=== PATIENT | female | born 1960 | race Caucasian/White ===

== ENCOUNTER 2018-07-26 12:09 | Inpatient (IN) ==
[2018-07-26] MEDS ORDERED: Clindamycin 900 MG/50 ML 900 MG/50 ML IV.SOLN IVPB ONE ×2 (12:27→14:00)
[2018-07-26 13:12] LABS: Basophils # 0.1 K/mcL (0.0-0.2); Eosinophils # 0.4 K/mcL (0.0-0.6); Eosinophils % 3.2 %; Hematocrit 36.9 % (35.3-44.9); Hemoglobin 11.3 g/dL (11.5-15.4); Immature Granulocytes % 1.5 % (0-4); Lymphocytes # 1.8 K/mcL (0.6-4.6); Lymphocytes % 14.1 %; Mean Corpuscular HGB Conc 30.6 g/dL (31.6-35.5); Mean Corpuscular Hemoglobin 25.6 pg (28.0-33.3); Mean Corpuscular Volume 83.7 fL (83.0-100.0); Mean Platelet Volume 8.6 fL (9.4-12.4); Monocytes # 0.7 K/mcL (0.0-1.3); Monocytes % 5.3 %; Neutrophils # 9.3 K/mcL (1.6-8.9); Platelet Count 521 K/mcL (140-400); Red Blood Count 4.41 M/mcL (3.82-4.97); Red Cell Distribution Width 14.8 % (11.5-14.5); Segmented Neutrophils % 74.9 %
[2018-07-26] MEDS: 0.9 % Sodium Chloride 1,000 ML IVC SCH (14:25)
[2018-07-26] MEDS: Sulfamethoxazole/Trimeth 10 ML in D5% in Water 500 ML IVPB SCH (18:14)
--- NOTE | 2018-07-26 19:02 | Anesthesia Evaluation PreOp ---
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 Of cervical cancer) Anesthesia History: No Prior Anesthetic Complications, Past Anesthesia (Exp. Lap., Kidney repair,) : No Alcohol Use: none Drug use: none Medications and Allergies Ascorbic Acid/Vitamin E/Biotin [Hair Skin Nails-Biotin Gummies] 1 tab PO DAILY 07/15/18 [History] Cyanocobalamin (Vitamin B-12) [Vitamin B-12] 1,000 mcg PO DAILY 07/15/18 [ History] Lactobacillus Combination No.8 [Adult Probiotic] 1 cap PO DAILY 07/15/18 [ History] Lisinopril 2.5 mg PO DAILY 07/15/18 [History] Metformin HCl [Glucophage] 500 mg PO BID 07/15/18 [History] Mv,Ca,Min/Iron/FA/Guarana/Caff [One-A-Day Women's Tablet] 1 tab PO DAILY [History] [employer]-3/Dha/Epa/Fish Oil [Fish Oil 1,000 mg Softgel] 1 cap PO DAILY 07/15/18 [ History] Potassium Chloride [K-Tab ER] 10 meq PO DAILY 07/15/18 [History] Pravastatin Sodium [Pravachol] 20 mg PO HS 07/15/18 [History] rOPINIRole [Requip] 0.5 mg PO HS 07/15/18 [History] Docusate [Colace] 100 mg PO BID #30 capsule 07/16/18 [Rx] HYDROcodone/Acet 5/325 mg [[place] 5-325 mg] 1 tab PO Q6H PRN 7 Days #28 tablet [Rx] Ibuprofen 800 mg PO Q8H #42 tablet 07/16/18 [Rx] Ondansetron HCl [Zofran] 4 mg PO Q6HR PRN #15 tab 07/16/18 [Rx] 3 Allergy/AdvReac Type Severity Reaction Status Date / Time simvastatin AdvReac Muscle Pain Verified 07/15/18 08:02 vancomycin AdvReac Red Man Verified 07/26/18 18:12 Syndrome - Meds/Allergy Pre-op Review Medications Reviewed: Yes Allergies Reviewed: Yes Beta Blockers on Current Med List: No Anesthesia Results - Labs 07/26/18 12:54 - Imaging EKG: report reviewed Anesthesia Exam O2 Sat Height 1.55 m Weight 110.223 kg O2 Sat by Pulse Oximetry 96 O2 Sat by Pulse Oximetry 96 O2 Sat by Pulse Oximetry 97 Vital Signs Temp Pulse Resp BP Pulse Ox 97.3 F L 90 18 103/67 97 07/26/18 12:58 07/26/18 12:58 07/26/18 12:58 07/26/18 12:58 07/26/18 12:58 NPO (# of Hours): > 8 hrs Pain Scale: 2 Pain Scale Used: Numeric (1 - 10) - HEENT Pupil (Motor): Pupils equal, EOMI Mallampati: III Teeth: Missing Denture Type: Upper: Complete Oral Opening: Greater than 3 - STRATEGIC PARTNER DEVELOPMENT MANAGER LOC: Oriented STRATEGIC PARTNER DEVELOPMENT MANAGER Motor: Normal RUE, Normal LUE, Normal RLE, Normal LLE, Normal Face STRATEGIC PARTNER DEVELOPMENT MANAGER Sensory: Normal: RUE, LUE, RLE, LLE, Face - Cardiac Rhythm: Regular Murmur: None JVD: No Carotid Bruit: No - Pulmonary Breath Sounds: bilateral Clear Respiratory Effort: Symmetrical Anesthesia Assess/Plan ASA Score: 3 Modified Rebecca Scale for Level of Consciousness: Cooperative, oriented, and tranquil Anesthetic Plan: General, Regional Autologous Blood: Yes Monitoring Plan: Standard Monitors Recovery Plan: PACU
[2018-07-26] MEDS: *HR* HYDROcodone/Acet 5/325 mg TABLET PO PRN (20:10)
[2018-07-27] MEDS: Sulfamethoxazole/Trimeth 10 ML in D5% in Water 500 ML IVPB SCH (06:01)
[2018-07-27] MEDS: *HR* HYDROcodone/Acet 5/325 mg TABLET PO PRN (09:02)
[2018-07-27] MEDS: 0.9 % Sodium Chloride 1,000 ML IVC SCH ×2 (11:33→20:00)
[2018-07-27] MEDS ORDERED: Sulfamethoxazole/Trimeth 34 ML in D5% in Water 500 ML IVPB SCH (14:00)
--- NOTE | 2018-07-27 17:06 | History & Physical Report ---
Date of Encounter: 07/27/18 Time of Encounter: 17:05 24 Hour HP Update - Instructions Instructions: If the History and Physical is less than 30 days old and was completed prior to A.M. admission and or procedure and has NOT been updated on calendar day of procedure please complete this update prior to performing procedure. - Update Patient reports changes in Medical Condition: No Changes in examination, assessment, or condition: No Changes in Medication: No Preop tests/diagnostics Reviewed: Yes Surgery Remains Indicated: Yes Consent for Planned Operative Procedure(s) Verified: Yes - Pre-Operative Checklist Preoperative Checklist Indicated: Yes Prophylactic Antibiotic Ordered: Yes Home Medications Include Beta Tevin: No
--- NOTE | 2018-07-27 17:10 | Event Note ---
Date of Encounter: 07/27/18 MAR Administrations Hydrocodone Bitart/Acetaminophen ([place] 5-325 Mg) 1 tab PO Q8HR PRN PRN Reason: Pain Stop: 01/25/19 13:58 Last Admin: 07/27/18 09:02 Dose: 1 tab Admin: 07/26/18 20:10 Dose: 1 tab Sodium Chloride (0.9 % Sodium Chloride) 1,000 mls @ 80 mls/hr IVC .[id number] [facility] Stop: 01/25/19 12:31 Last Admin: 07/27/18 11:33 Dose: 80 mls/hr Infusion: 07/27/18 02:55 Dose: 80 mls/hr Admin: 07/26/18 14:25 Dose: 80 mls/hr Trimethoprim/Sulfamethoxazole (34 ml/ Dextrose) 534 mls @ 249.76 mls/hr IVPB Q8H [facility] Stop: 01/26/19 14:01 Last Admin: 07/27/18 14:56 Dose: 249.76 mls/hr Clindamycin Phosphate/Dextrose (Cleocin Premix 900 Mg/50 Ml) 900 mg in 50 mls @ 100 mls/hr IVPB PREOP ONE Stop: 07/26/18 12:56 Last Admin: 07/26/18 13:59 Dose:
[2018-07-27] MEDS ORDERED: Ondansetron 4 MG/2 ML VIAL IVP ONE ×2 (17:14→19:48)
[2018-07-27] MEDS ORDERED: *HR* OxyCODONE Immed Rel 5 MG TABLET PO PRN ×2 (17:14→19:48)
[2018-07-27] MEDS ORDERED: *HR* Promethazine 25 MG/ML VIAL IVP PRN ×2 (17:14→19:48)
[2018-07-27] MEDS ORDERED: *HR* HYDROmorphone (PF) 1 MG/ML SYRINGE IVP PRN ×2 (17:14→19:48)
--- NOTE | 2018-07-27 17:29 | Anesthesia Progress Note ---
Date of Encounter: 07/27/18 Time of Encounter: 17:11 Anesthesia Note - Note Note: SURGICAL PROCEDURE WAS CHANGED TO EXPLORATORY LAPAROTOMY MAR Administrations Hydrocodone Bitart/Acetaminophen ([place] 5-325 Mg) 1 tab PO Q8HR PRN PRN Reason: Pain Stop: 01/25/19 13:58 Last Admin: 07/27/18 09:02 Dose: 1 tab Trimethoprim/Sulfamethoxazole (34 ml/ Dextrose) 534 mls @ 249.76 mls/hr IVPB Q8H [facility] Stop: 01/26/19 14:01 Last Admin: 07/27/18 14:56 Dose: 249.76 mls/hr Vancomycin HCl 1,500 mg/ (Sodium Chloride) 250 mls @ 167 mls/hr IVPB ONCE ONE PRN Reason: Protocol Stop: 07/26/18 15:29 Last Admin: 07/26/18 15:39 Dose: 167 mls/hr Clindamycin Phosphate/Dextrose (Cleocin Premix 900 Mg/50 Ml) 900 mg in 50 mls @ 100 mls/hr IVPB PREOP ONE Stop: 07/26/18 14:29 Last Infusion: 07/26/18 15:00 Dose: 0 mls/hr Admin: 07/26/18 14:25 Dose: 100 mls/hr NPO: >8 HRS Laboratory Last Values 3 WBC 12.4 K/mcL (4.3-11.1) H 07/26/18 12:54 RBC 4.41 M/mcL (3.82-4.97) 07/26/18 12:54 Hgb 11.3 g/dL (11.5-15.4) L 07/26/18 12:54 Hct 36.9 % (35.3-44.9) 07/26/18 12:54 MCV 83.7 fL (83.0-100.0) 07/26/18 12:54 MCH 25.6 pg (28.0-33.3) L 07/26/18 12:54 MCHC 30.6 g/dL (31.6-35.5) L 07/26/18 12:54 RDW 14.8 % (11.5-14.5) H 07/26/18 12:54 Plt Count 521 K/mcL (140-400) H 07/26/18 12:54 MPV 8.6 fL (9.4-12.4) L 07/26/18 12:54 Immature Gran % 1.5 % (0-4) 07/26/18 12:54 Seg Neutrophils % 74.9 % 07/26/18 12:54 Lymphocytes % 14.1 % 07/26/18 12:54 Monocytes % 5.3 % 07/26/18 12:54 Eosinophils % 3.2 % 07/26/18 12:54 Basophils % 1.0 % 07/26/18 12:54 Neutrophils # 9.3 K/mcL (1.6-8.9) H 07/26/18 12:54 Lymphocytes # 1.8 K/mcL (0.6-4.6) 07/26/18 12:54 Monocytes # 0.7 K/mcL (0.0-1.3) 07/26/18 12:54 Eosinophils # 0.4 K/mcL (0.0-0.6) 07/26/18 12:54 Basophils # 0.1 K/mcL (0.0-0.2) 07/26/18 12:54 POC Glucose 85 mg/dL (70-99) 07/27/18 13:15 Laboratory Tests 3 06/07/18 07/02/18 07/16/18 08:07 10:22 03:48 Sodium 139 Potassium 4.3 BUN 12 Creatinine 0.71 POC Creatinine 0.80 Est GFR (Non-Af Amer) > 60 Hemoglobin A1c 5.8 H Calcium 8.6
[2018-07-27] MEDS ORDERED: *HR* HYDROmorphone (PF) 1 MG/ML SYRINGE ONE (17:31)
[2018-07-27] MEDS ORDERED: Acetaminophen IV 1,000 MG/100 ML INFUS..BTL ONE (17:31)
[2018-07-27] MEDS ORDERED: *HR* Vasopressin 20 UNIT/ML VIAL ONE (18:06)
[2018-07-27] MEDS ORDERED: *HR* Succinylcholine 200 MG/10 ML VIAL IVP ONE (18:08)
[2018-07-27] MEDS ORDERED: Ondansetron 4 MG/2 ML VIAL ONE (18:08)
[2018-07-27] MEDS ORDERED: Lidocaine -MPF 2% 2 ML VIAL ONE (18:08)
[2018-07-27] MEDS ORDERED: Dexamethasone 4 MG/ML VIAL ONE (18:08)
[2018-07-27] MEDS ORDERED: *HR* PHENYLEPHRINE 1,000 MCG/10 ML SYRINGE IVP ONE (18:08)
[2018-07-27] MEDS ORDERED: *HR* Propofol 200 MG/20 ML VIAL IVP ONE (18:08)
[2018-07-27] MEDS ORDERED: *HR* Rocuronium Bromide 50 MG/5 ML VIAL ONE (18:08)
[2018-07-27] MEDS ORDERED: *HR* FentaNYL (PF) 100 MCG/2 ML VIAL ONE (18:08)
[2018-07-27] MEDS ORDERED: Albumin Human 5% 25.0 GM/500 ML VIAL ONE (18:28)
[2018-07-27] MEDS ORDERED: Neostigmine Methylsulfate 3 MG/3 ML SYRINGE ONE (18:42)
[2018-07-27] MEDS ORDERED: Ketorolac 30 MG/ML VIAL ONE (18:42)
[2018-07-27] MEDS ORDERED: ROPIVACAINE HCL/PF 0.5% 30 ML VIAL ONE (18:50)
[2018-07-27] MEDS ORDERED: *HR* HYDROmorphone 20 MG/20 ML PCA IVC PRN ×2 (19:05→20:28)
--- NOTE | 2018-07-27 19:15 | Anesthesia Procedures ---
Date of Encounter: 07/27/18 Time of Encounter: 19:14 Procedures: Anesthesia - Nerve Block Procedure Date: 07/27/18 Time: 19:20 Pre-op Diagnosis: POST OPERATIVE PAIN Checklist: Correct Patient Identifier, Correct procedure Blood Thinner: No Indication: Post Op Analgesia Block Type: Other (BILATERAL TAP BLOCK) Sterile Technique: Yes Ultrasound used: Yes Anatomy identified: Yes Visual spread of Local: Yes Neuro Stimulation: No Blood on Needle Aspiration: No Prep: Chlorhexadine Needle: 21 x 100 mm Stimuplex Local: Ropivacaine (0.25%) Volume (cc): 60 ML Number of Attempts: 1 Complications: None/effective block
--- NOTE | 2018-07-27 19:43 | Anesthesia Evaluation Post Op ---
Date of Encounter: 07/27/18 Time of Encounter: 19:42 - Discharge PostOp Status: Transfer Patient to floor (Patient's vital signs have been reviewed. Patient is stable postoperatively and has adequately recovered from anesthesia. Patient is determined to have stable airway patency and respiratory function including respiratory rate and oxygen saturation. Patient has a stable heart rate, blood pressure and adequate hydration. Patients mental status is acceptable. Patients temperature is appropriate. Pain and nausea are adequately controlled.)
[2018-07-27] MEDS ORDERED: *HR* HYDROcodone/Acet 5/325 mg TABLET PO PRN (19:48)
[2018-07-27] MEDS ORDERED: 0.9 % Sodium Chloride 1,000 ML ONE (21:06)
[2018-07-28] MEDS: Sulfamethoxazole/Trimeth 34 ML in D5% in Water 500 ML IVPB SCH ×4 (00:03→22:17)
[2018-07-28] MEDS: 0.9 % Sodium Chloride 1,000 ML IVC SCH ×2 (08:32→22:18)
[2018-07-28] MEDS ORDERED: Dextrose Gel 15 GM/37.5 ML TUBE PO PRN ×2 (08:35)
[2018-07-28] MEDS ORDERED: *HR* Dextrose 50 % in Water (Syg) 50 ML SYRINGE IVP PRN (08:35)
[2018-07-28] MEDS ORDERED: D5% in Water 1,000 ML IVC PRN (08:35)
--- NOTE | 2018-07-28 08:47 | General Surgery Progress Note ---
Date of Encounter: 07/28/18 Time of Encounter: 08:00 - Assessment and Plan (1) Non-healing surgical wound Current Visit: No Status: Acute POD #1 (07/27/2018) exploratory laparotomy with lysis of adhesions, removal of mesh, and wound VAC placement by Dr. Sutton. Her abdominal exam is as expected. Her vital signs are stable, she is afebrile , discomfort is moderately controlled. There is no evidence for concern of active bleeding. Wound VAC and abdominal binder are in place. Plan: continue supportive care and discomfort management add scheduled Ofirmev and Toradol the GERIATRIC NURSE PRACTITIONER as tolerated; transition to PO pain medication as tolerated continue G.I. and DVT prophylaxis incentive spirometry 10 times every 1 hour while awake consult PT/OT for mobilization and discharge planning abdomen precautions include do not raise out of bed but roll to the side and push up with her arms to get out of bed. Abdominal binder to remain in place at all times except when showering; patient should remain seated on a shower chair. NPO except ice chips and popsicle repeat a.m. 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 Goal blood pressure less than 130/90. Will hold lisinopril today and reevaluate in the a.m. Qualifiers: Hypertension type: essential hypertension Qualified Code(s): I10 - Essential (primary) hypertension (4) DVT prophylaxis Current Visit: Yes Status: Acute Heparin 5000 units sub Q BID EP CDs ambulate as tolerated Subjective Patient reports: still having pain, voiding w/o difficulty, no flatus, no bowel movement, afebrile Narrative: Yaneli states her abdomen is sore, but controlled. She denies n/v, flatus, or BM. She denies feelings of weakness. She has not attempted to get OOB and has been voiding per bedpan. Objective Vital Signs - Last 8 Hours Temp Pulse Resp BP Pulse Ox 07/28/18 06:31 98.8 F 78 18 95/61 92 07/28/18 04:11 103/50 07/28/18 03:16 98.6 F 90 17 90/57 90 Intake and Output 07/27/18 07/28/18 07/28/18 23:59 07:59 15:59 Intake Total 0 / 0 534 / 534 1484 / 1484 Output Total 100 / 100 200 / 200 Balance -100 / -100 334 / 334 1484 / 1484 Intake: IV Fluids 534 / 534 1484 / 1484 0.9 % Sodium Chloride 1,000 ML 950 / 950 @ 80 mls/hr IVC .[id number] [facility] Rx #:[id number] Bactrim 800MG/160MG/10ML 34 ML 534 / 534 534 / 534 In Dextrose 5% 500 ML @ 249.76 mls/hr IVPB Q8H [facility] Rx#: [id number] Oral 0 / 0 Output: Urine 150 / 150 Estimated Blood Loss 50 / 50 Wound Drainage 50 / 50 50 / 50 Medial Abdomen 50 / 50 50 / 50 Other: Weight 116.3 kg Blood Glucose* 162 133 Patient Weight 07/28/18 23:59 Weight 116.3 kg - General physical appearance no distress, moderate pain - ENT normal nares, normal mucosa - Neck Neck exam: trachea midline - Respiratory other (decreased respiratory effort, but clear ) - Cardiovascular Cardiovascular exam: Present: RRR, distant heart sounds - Abdomen Abdomen: Present: soft, tender (Specter postoperative). Absent: bowel sounds present - Incision Incision: Present: open (Black foam wound VAC in place. No leak noted. Small amount of serosanguineous drainage noted) - Integumentary no growths - Neurologic normal coordination, normal sensation - Musculoskeletal normal posture - Psychiatric oriented to time, oriented to person, oriented to place, speech is normal, memory intact - Labs 07/28/18 08:59 07/28/18 08:58 Consult Discharge Plan - Plan Referrals: Michel Wynn DO [Primary Care Provider] -
[2018-07-28] MEDS: Ketorolac 15 MG/ML VIAL IVP SCH ×3 (08:58→18:15)
[2018-07-28 09:47] LABS: Basophils % 0.3 %; Eosinophils % 0.2 %; Immature Granulocytes % 1.5 % (0-4); Lymphocytes # 1.3 K/mcL (0.6-4.6); Lymphocytes % 10.8 %; Mean Corpuscular HGB Conc 29.4 g/dL (31.6-35.5); Mean Corpuscular Hemoglobin 25.9 pg (28.0-33.3); Mean Corpuscular Volume 88.1 fL (83.0-100.0); Monocytes # 0.8 K/mcL (0.0-1.3); Monocytes % 6.6 %; Neutrophils # 9.5 K/mcL (1.6-8.9); Platelet Count 405 K/mcL (140-400); Red Blood Count 3.86 M/mcL (3.82-4.97); Red Cell Distribution Width 14.7 % (11.5-14.5); Segmented Neutrophils % 80.6 %
[2018-07-28 09:57] LABS: BUN/Creatinine Ratio 9 (6-26); Blood Urea Nitrogen 8 mg/dL (6-20); Calcium 8.2 mg/dL (8.6-10.3); Carbon Dioxide 22 mEq/L (23-29); Chloride 105 mEq/L (98-107); Glucose 125 mg/dL (70-105); Osmolality,Calculated 286 (280-300); Potassium 4.1 mEq/L (3.5-5.1); Sodium 138 mEq/L (136-145); eGFR For Non-African Americans > 60 (> 60)
--- NOTE | 2018-07-28 11:33 | Operative Note ---
Date of procedure: 07/27/18 Pre-op diagnosis: Wound dehiscence Post-op diagnosis: same Procedure: Expiratory laparotomy with lysis of adhesions 35 minutes followed by removal of mesh foreign body Anesthesia: MIKAL Surgeon: Mathew Sutton Was there an water quality assistant present: Yes Crew Lead: Allison Eaton Estimated blood loss (cc): 100 Specimen: 0 Condition: stable Disposition: same day Procedure in Detail: After informed consent, the patient was taken to the operating room placed in supine position. After adequate sedation and anesthesia the abdomen was prepped and draped. The granulation tissue from the previous wound VAC was lysed. The midline was opened. The Prolene suture was removed. At the most cephalad and most caudad torsion of the incision there were 2 portions of polyester mesh which were exposed and had associated purulence. These were removed. A lysis of adhesions was performed to develop a plane to remove the remainder of the mesh on the abdominal wall. This took approximately 35 minutes. At that point the mesh was removed with sharp dissection. Once all mesh been removed then there were 2 individual 0 PDS sutures were used to close the abdominal wall in running fashion. The midline was supported with a wound VAC. Sponge was cut to size and the adhesive dressing was placed over top. There was good suction and C1 wound VAC. At this point the procedure was terminated.
[2018-07-28] MEDS: Insulin LISPRO 300 UNITS/3 ML VIAL SQ SCH ×3 (11:50→21:58)
[2018-07-28] MEDS: Acetaminophen IV 1,000 MG/100 ML INFUS..BTL IVPB SCH ×2 (12:42→18:12)
[2018-07-28] MEDS: Pantoprazole 40 MG VIAL IVP SCH (12:42)
[2018-07-28] MEDS: *HR* Heparin 5,000 UNIT/ML VIAL SQ SCH (18:14)
[2018-07-28] MEDS: rOPINIRole 0.25 MG TABLET PO SCH (22:17)
[2018-07-29] MEDS: Acetaminophen IV 1,000 MG/100 ML INFUS..BTL IVPB SCH ×4 (00:48→18:26)
[2018-07-29] MEDS: Ketorolac 15 MG/ML VIAL IVP SCH ×4 (00:48→18:30)
[2018-07-29 01:23] LABS: Blood Urea Nitrogen 7 mg/dL (6-20); Calcium 7.9 mg/dL (8.6-10.3); Carbon Dioxide 21 mEq/L (23-29); Chloride 106 mEq/L (98-107); Glucose 117 mg/dL (70-105); Osmolality,Calculated 283 (280-300); Potassium 3.2 mEq/L (3.5-5.1); Sodium 137 mEq/L (136-145)
[2018-07-29 01:52] LABS: Basophils # 0.1 K/mcL (0.0-0.2); Basophils % 0.4 %; Eosinophils # 0.8 K/mcL (0.0-0.6); Hematocrit 29.3 % (35.3-44.9); Hemoglobin 9.2 g/dL (11.5-15.4); Immature Granulocytes % 0.7 % (0-4); Lymphocytes # 2.1 K/mcL (0.6-4.6); Lymphocytes % 17.9 %; Mean Corpuscular HGB Conc 31.4 g/dL (31.6-35.5); Mean Corpuscular Volume 82.8 fL (83.0-100.0); Mean Platelet Volume 8.6 fL (9.4-12.4); Monocytes # 0.8 K/mcL (0.0-1.3); Monocytes % 6.8 %; Neutrophils # 7.9 K/mcL (1.6-8.9); Platelet Count 418 K/mcL (140-400); Red Blood Count 3.54 M/mcL (3.82-4.97); Red Cell Distribution Width 14.5 % (11.5-14.5); Segmented Neutrophils % 67.2 %
[2018-07-29 02:21] LABS: BUN/Creatinine Ratio 7 (6-26); eGFR For Non-African Americans 59 (> 60)
[2018-07-29] MEDS: *HR* Heparin 5,000 UNIT/ML VIAL SQ SCH ×2 (05:52→17:30)
[2018-07-29] MEDS: Sulfamethoxazole/Trimeth 34 ML in D5% in Water 500 ML IVPB SCH ×3 (05:53→23:01)
[2018-07-29] MEDS: Insulin LISPRO 300 UNITS/3 ML VIAL SQ SCH ×3 (08:35→17:29)
[2018-07-29] MEDS: Pantoprazole 40 MG VIAL IVP SCH (10:18)
[2018-07-29] MEDS: 0.9 % Sodium Chloride 1,000 ML IVC SCH (10:24)
[2018-07-29] MEDS ORDERED: Potassium Chloride 40 MEQ, Lidocaine 1% 2 ML in D5% in Water 500 ML IVPB ONE (13:52)
--- NOTE | 2018-07-29 13:57 | General Surgery Progress Note ---
Date of Encounter: 07/29/18 Time of Encounter: 13:00 - Assessment and Plan (1) Non-healing surgical wound Current Visit: No Status: Acute POD #2 Exploratory laparotomy with lysis of adhesions 35 minutes followed by removal of mesh foreign body with Dr. 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 (will convert to PO medications) Abdominal Binder IS every 1 hour while awake PPI therapy daily Ambulate hallways TID with assistance Repeat am labs- BMP Social service consult for home health care Qualifiers: Encounter type: initial encounter Qualified Code(s): T81.89XA - Other complications of procedures, not elsewhere classified, initial encounter (2) Diabetes Current Visit: Yes Status: Chronic Controlled Continue current regimen Qualifiers: Diabetes mellitus type: type 2 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 Diabetes mellitus complication status: with unspecified complications Qualified Code(s): E11.8 - Type 2 diabetes mellitus with unspecified complications (3) Hypertension Current Visit: Yes Status: Chronic Normotensive Qualifiers: Hypertension type: essential hypertension Qualified Code(s): I10 - Essential (primary) hypertension (4) Hypokalemia Current Visit: Yes Status: Acute Replace potassium Repeat am BMP (5) DVT prophylaxis Current Visit: Yes Status: Acute Heparin 5,000 units SQ twice daily for DVT prophylaxis Ambulate hallways TID with assistance Subjective Patient reports: no new complaints, feels better, still having pain, pain is less, tolerating liquids well (sips of liquids and ice chips), voiding w/o difficulty, flatus, bowel movement, afebrile, other (Patient complains of anxiety attacks X 2 this morning) Objective Vital Signs - Last 8 Hours Temp Pulse Resp BP Pulse Ox 07/29/18 10:53 97.5 F L 78 20 103/59 97 07/29/18 07:45 97.6 F 89 20 114/74 96 Intake and Output 07/28/18 07/29/18 07/29/18 23:59 07:59 15:59 Intake Total 1634 / 1634 782 / 782 950 / 950 Output Total 200 / 200 Balance 1634 / 1634 782 / 782 750 / 750 Intake: IV Fluids 1634 / 1634 734 / 734 950 / 950 0.9 % Sodium Chloride 1,000 ML 1000 / 1000 950 / 950 @ 80 mls/hr IVC .[id number] [facility] Rx #:[id number] Ofirmev 1,000 mg/100 ml 1,000 100 / 100 200 / 200 mg In 100 ml @ 400 mls/hr IVPB Q6HR [facility] Rx#:[id number] Bactrim 800MG/160MG/10ML 34 ML 534 / 534 534 / 534 In Dextrose 5% 500 ML @ 249.76 mls/hr IVPB Q8H [facility] Rx#: [id number] Oral 48 / 48 Output: Urine 200 / 200 Other: Meal popsicle NPO Percent of Meal Consumed 0% Stool Size Small Stool Consistency loose Stool Color Green # Voids 1 1 # Bowel Movements 1 Weight 118 kg Blood Glucose* 93 143 98 Patient Weight 07/29/18 23:59 Weight 118 kg - General physical appearance well developed, well nourished, moderate pain - Eyes normal ocular movement - ENT normal mucosa, atraumatic, normocephalic - Neck Neck exam: trachea midline - Respiratory normal respiratory effort, clear to auscultation - Cardiovascular Cardiovascular exam: Present: RRR - Abdomen Abdomen: Present: bowel sounds present, soft, tender (Expected postoperative tenderness), wound (Midline with wound vac intact with serousang. drainage noted (small amount)) - Incision Incision: Present: open (Wound vac intact with small amount of serousang. drainage noted (changed today per surgery team)) - Neurologic CN 2-12 grossly intact - Psychiatric oriented to time, oriented to person, oriented to place, speech is normal, memory intact - Labs 07/29/18 00:46 07/29/18 00:46 Diabetes panel 07/29/18 Range/Units 00:46 Sodium 137 (136-145) mEq/L Potassium 3.2 L (3.5-5.1) mEq/L Chloride 106 (98-107) mEq/L Carbon Dioxide 21 L (23-29) mEq/L BUN 7 (6-20) mg/dL Creatinine 0.97 (0.60-1.20) mg/dL Glucose 117 H (70-105) mg/dL Calcium 7.9 L (8.6-10.3) mg/dL Calcium panel 07/29/18 Range/Units 00:46 Calcium 7.9 L (8.6-10.3) mg/dL Pituitary panel 07/29/18 Range/Units 00:46 Sodium 137 (136-145) mEq/L Potassium 3.2 L (3.5-5.1) mEq/L Chloride 106 (98-107) mEq/L Carbon Dioxide 21 L (23-29) mEq/L BUN 7 (6-20) mg/dL Creatinine 0.97 (0.60-1.20) mg/dL Glucose 117 H (70-105) mg/dL Calcium 7.9 L (8.6-10.3) mg/dL Adrenal panel 07/29/18 Range/Units 00:46 Sodium 137 (136-145) mEq/L Potassium 3.2 L (3.5-5.1) mEq/L Chloride 106 (98-107) mEq/L Carbon Dioxide 21 L (23-29) mEq/L BUN 7 (6-20) mg/dL Creatinine 0.97 (0.60-1.20) mg/dL Glucose 117 H (70-105) mg/dL Calcium 7.9 L (8.6-10.3) mg/dL Consult Discharge Plan - Plan Referrals: Michel Wynn DO [Primary Care Provider] - - Attending Attestation For this encounter, I have reviewed the FLASK CLEANER or PA documentation, treatment plan, and medical decision making; and I have had face to face time with this patient.
[2018-07-29] MEDS: rOPINIRole 0.25 MG TABLET PO SCH (22:23)
[2018-07-29] MEDS: *HR* HYDROcodone/Acet 7.5/325 mg TABLET PO PRN (22:28)
[2018-07-30 03:59] LABS: BUN/Creatinine Ratio 8 (6-26); Blood Urea Nitrogen 7 mg/dL (6-20); Calcium 8.3 mg/dL (8.6-10.3); Carbon Dioxide 22 mEq/L (23-29); Chloride 105 mEq/L (98-107); Glucose 84 mg/dL (70-105); Osmolality,Calculated 283 (280-300); Potassium 3.9 mEq/L (3.5-5.1); Sodium 138 mEq/L (136-145); eGFR For Non-African Americans > 60 (> 60)
[2018-07-30] MEDS: 0.9 % Sodium Chloride 1,000 ML IVC SCH ×2 (04:02→12:48)
[2018-07-30] MEDS: Ketorolac 15 MG/ML VIAL IVP SCH ×3 (04:02→13:14)
[2018-07-30] MEDS: Acetaminophen IV 1,000 MG/100 ML INFUS..BTL IVPB SCH ×3 (04:19→13:15)
[2018-07-30] MEDS: Insulin LISPRO 300 UNITS/3 ML VIAL SQ SCH ×3 (04:20→12:40)
[2018-07-30] MEDS: *HR* Heparin 5,000 UNIT/ML VIAL SQ SCH (05:41)
[2018-07-30] MEDS: Sulfamethoxazole/Trimeth 34 ML in D5% in Water 500 ML IVPB SCH ×2 (06:21→13:15)
[2018-07-30] MEDS: Pantoprazole 40 MG VIAL IVP SCH (08:08)
[2018-07-30] MEDS: *HR* HYDROcodone/Acet 7.5/325 mg TABLET PO PRN (08:17)
[2018-07-30 10:46] VITALS: BP 147/71
--- NOTE | 2018-07-30 13:28 | Discharge Summary ---
Orders not resulted at time of discharge: Pending orders 07/27/18 18:48 US anesthesia pain block [US] Routine Date of Encounter: 07/30/18 Time of Encounter: 13:29 - Discharge Diagnosis (1) Non-healing surgical wound Priority: Primary Status: Acute Qualifiers: Encounter type: subsequent encounter Qualified Code(s): T81.89XD - Other complications of procedures, not elsewhere classified, subsequent encounter (2) Diabetes Priority: Secondary Status: Chronic (3) Hypokalemia Priority: Secondary Status: Resolved (4) Hypertension Priority: Secondary Status: Chronic Qualifiers: Hypertension type: essential hypertension Qualified Code(s): I10 - Essential (primary) hypertension General Surgery Exam Initial Vital Signs Temp Pulse Resp BP Pulse Ox 97.3 F L 90 18 103/67 97 07/26/18 12:58 07/26/18 12:58 07/26/18 12:58 07/26/18 12:58 07/26/18 12:58 - General physical appearance well developed, well nourished, obese - Eyes normal ocular movement - ENT normal pinna, normal nares, normal mucosa - Respiratory normal expansion, normal respiratory effort, clear to auscultation - Cardiovascular Cardiovascular exam: Present: RRR, no murmurs/rubs/gallops - Abdomen Abdomen general surgery: Present: bowel sounds present (minimal), soft, tender (at wound vac) Hernia: Present: none - Incision Incision: Present: draining (wound vac working improperly and draining). Absent: erythema, purulent - Integumentary Integumentary general surgery: Present: warm and dry, no abnormal pigmentation. Absent: diaphoresis - Neurologic Present: CN 2-12 grossly intact, normal coordination, normal sensation - Musculoskeletal Present: normal gait, normal posture - Psychiatric Psychiatric general surgery: Present: A&Ox3, speech is normal, memory intact, tearful, other (anxious) - Hospital Course Hospital course: Ms. Pineda is a 57 year old female hsitory of DM and HTn with a chronic non healing surgical wound underwent POD 3 from second lysis of adhesions and removal of mesh foreign body with wound vac placement on 07-27-13. She recovered well; produced flatus a and was able to tolerate diet of fulls . There was temporary dysfunction of wound vac after transfer but that resolved when changed back to home untilll. She was able to tolerate a walk test with a pulse ox of 95%. She was discharged home with home health for wound care. Discharged on POD 3- She has given scripts for norco at home dose but increased rate due to her post surgical pain - her pain management doctor should not count this as a violation of any contract. She is scheduled to follow up in office. - Time Spent with Patient Total time spent providing and/or coordinating discharge services: - Discharge Medications Prescriptions: HYDROcodone/Acet 7.5/325 mg [[place] 7.5-325 mg] 1 tab PO Q6HR PRN 7 Days #30 tablet PRN Reason: Pain Docusate [Colace] 100 mg PO BID #48 capsule Ibuprofen 800 mg PO Q8H #42 tablet Home Medications: Ascorbic Acid/Vitamin E/Biotin [Hair Skin Nails-Biotin Gummies] 1 tab PO DAILY 07/15/18 [History] Cyanocobalamin (Vitamin B-12) [Vitamin B-12] 1,000 mcg PO DAILY 07/15/18 [History] Lactobacillus Combination No.8 [Adult Probiotic] 1 cap PO DAILY 07/15/18 [History] Lisinopril 2.5 mg PO DAILY 07/15/18 [History] Metformin HCl [Glucophage] 500 mg PO BID 07/15/18 [History] Mv,Ca,Min/Iron/FA/Guarana/Caff [One-A-Day Women's Tablet] 1 tab PO DAILY 07/15/18 [History] [place]-3/Dha/Epa/Fish Oil [Fish Oil 1,000 mg Softgel] 1 cap PO DAILY 07/15/18 [History] Potassium Chloride [K-Tab ER] 10 meq PO DAILY 07/15/18 [History] Pravastatin Sodium [Pravachol] 20 mg PO HS 07/15/18 [History] rOPINIRole [Requip] 0.5 mg PO HS 07/15/18 [History] Docusate [Colace] 100 mg PO BID #30 capsule 07/16/18 [Rx] HYDROcodone/Acet 5/325 mg [[place] 5-325 mg] 1 tab PO Q6H PRN 7 Days #28 tablet 07/16/18 [Rx] Ondansetron HCl [Zofran] 4 mg PO Q6HR PRN #15 tab 07/16/18 [Rx] Docusate [Colace] 100 mg PO BID #48 capsule 10/13/18 [Rx] HYDROcodone/Acet 7.5/325 mg [[place] 7.5-325 mg] 1 tab PO Q6HR PRN 7 Days #30 tablet 07/30/18 [Rx] Ibuprofen 800 mg PO Q8H #42 tablet 07/30/18 [Rx] Allergies/Adverse Reactions: Allergy/AdvReac Type Severity Reaction Status Date / Time simvastatin AdvReac Muscle Pain Verified 07/15/18 08:02 vancomycin AdvReac Red Man Verified 07/26/18 18:12 Syndrome Date of admission: 07/28/18 14:17 Primary care physician: Michel Wynn DO Consults: 07/28/18 08:42 Consult to Occupational Therapy [CONS] Stat Comment: Evaluate, develop and implement POC Reason for Consult: Mobilization and d/c planning. Pt should use as little abdominal muscle as possible. Will need education/assitance on getting OOB via rolling techinique. Abd binding should remain in place at all times, except when showering (in a seated position/on shower chair) Does patient have active BEDREST order?: No Is patient medically & hemodynamically stable?: Yes Patient assessed for mobility or mobilized this visit?: No Consult to Physical Therapy [CONS] Stat Comment: Evaluate, develop and implement POC Reason for Consult: Mobilization and d/c planning. Pt should use as little abdominal muscle as possible. Will need education/assitance on getting OOB via rolling techinique. Abd binding should remain in place at all times, except when showering (in a seated position/on shower chair) Does patient have active BEDREST order?: No Is patient medically & hemodynamically stable?: Yes Patient assessed for mobility or mobilized this visit?: No 07/28/18 14:20 Consult to Wastewater Process Engineer [CONS] Routine Reason for SW Consult: Patient will need home health care at discharge for management of wound vac (patient already has home wound vac approved) Discharging clinician: Yoly Lizama Anticipated date of discharge: 07/30/18 Labs on day of discharge: Labs from last 24 hours 07/30/18 07/29/18 07/28/18 02:56 16:32 11:26 Sodium 138 Potassium 3.9 Chloride 105 Carbon Dioxide 22 L BUN 7 Creatinine 0.83 Est GFR ( Amer) > 60 Est GFR (Non-Af Amer) > 60 BUN/Creatinine Ratio 8 Glucose 84 POC Glucose 210 H 97 Calculated Osmolality 283 Calcium 8.3 L - Patient Status Disposition: Home Health Service Condition: Fair Overall status at discharge: patient is progressing back to baseline - Discharge Instructions Follow Up With: Jyoti Sutton CNP [Advanced Practice Nurse] - 08/08/18 2:15 pm Michel Wynn DO [Primary Care Provider] - - Diet and Activity Activity: increase activity as tolerated Diet: advance to your usual diet
== END 2018-07-30 15:36 | disposition home health service (06) | DRG 908 ==
LOC: 3NENU 12:39 → INTOOBSV 12:39 → 3ANU 07-27 17:31
PROVIDERS: ADMIT Surgery; ATTEND Surgery

== ENCOUNTER 2018-08-10 08:13 | Inpatient (IN) ==
[2018-08-10] MEDS ORDERED: Piperacillin/Tazobactam 3.375 GM in Water for inj. (sterile) 20 ML 20 ML IVP ONE (08:25)
[2018-08-10] MEDS ORDERED: 0.9 % Sodium Chloride 1,000 ML IVC ONE (08:36)
[2018-08-10] MEDS ORDERED: Piperacillin/Tazobactam 3.375 GM in 0.9 % Sodium Chloride Mini Bag 100 ML IVPB ONE (08:36)
--- NOTE | 2018-08-10 09:07 | Emergency Department Note ---
Addendum entered and electronically signed by Milton Vazquez CNP 08/10/18 12:00: Pt has positive tropon, EKG sinus tachycardia without ST-T change. The elevation of Troponin is most likely from multi-organs injury. Original Note: Disposition Clinical Impression: Non-healing surgical wound, Fever, Hypotension, Elevated troponin, Acute kidney injury, Sepsis Disposition: Admitted As Inpatient Condition: Fair Referrals: Michel Wynn DO [Primary Care Provider] - Forms: ED Satisfaction Letter General Adult HPI - General Chief complaint: ED Wound/Laceration Stated complaint: Possible sepsis, wound infection Time Seen by Provider: 08/10/18 08:24 Source: family Mode of arrival: ambulatory Limitations: no limitations Nursing Notes Reviewed: Yes Vital Signs Reviewed: Yes - History of Present Illness HPI Narrative: 57 year old female with a history of hypertension diabetes non-healing abdomen surgical wound presents for sepsis evaluation. Pt has a open surgical wound in lower abdomen from previous abdomen surgery and infection from [facility]. Patient was on wound VAC and follows up with Dr. Sutton. Pt found some redness around wound vac on Wednesday (3 days ago). She was prescribed Augmentin. Pt found a red and tender nodule around the wound last night. Her temperature was 100.7. Pt's daughter found a opening with pus drainage this morning. Onset (ago): day(s) (3) Location: abdomen Radiation: abdomen Pain Scale: 3 Consistency: constant - Related Data Home Medications Medication Instructions Recorded Confirmed Ascorbic Acid/Vitamin E/Biotin 1 tab PO QPM 07/15/18 08/10/18 [Hair Skin Nails-Biotin Gummies] Cyanocobalamin (Vitamin B-12) 1,000 mcg PO FR 07/15/18 08/10/18 [Vitamin B-12] Lactobacillus Combination No.8 1 cap PO QPM 07/15/18 08/10/18 [Adult Probiotic] Lisinopril 2.5 mg PO QPM 07/15/18 08/10/18 Metformin HCl [Glucophage] 500 mg PO BID 07/15/18 08/10/18 Mv,Ca,Min/Iron/FA/Guarana/Caff 1 tab PO QPM 07/15/18 08/10/18 [One-A-Day Women's Tablet] [place]-3/Dha/Epa/Fish Oil [Fish Oil 1 cap PO QPM 07/15/18 08/10/18 1,000 mg Softgel] Potassium Chloride [K-Tab ER] 10 meq PO QPM 07/15/18 08/10/18 Pravastatin Sodium [Pravachol] 20 mg PO QPM 07/15/18 08/10/18 rOPINIRole [Requip] 0.5 mg PO HS 07/15/18 08/10/18 Amoxicillin/Clavulanate [Augmentin] 875 mg PO BID 08/10/18 08/10/18 Docusate [Colace] 100 mg PO Q12H PRN 08/10/18 08/10/18 Ibuprofen 800 mg PO Q8H PRN 08/10/18 08/10/18 Previous Rx's Medication Instructions Recorded Ondansetron HCl [Zofran] 4 mg PO Q6HR PRN #15 tab 07/16/18 HYDROcodone/Acet 7.5/325 mg [[place] 1 tab PO Q6HR PRN 7 Days #30 tablet 07/30/18 7.5-325 mg] Allergies Allergy/AdvReac Type Severity Reaction Status Date / Time adhesive tape AdvReac See Verified 08/10/18 09:26 Comments simvastatin AdvReac Muscle Pain Verified 08/10/18 08:20 vancomycin AdvReac Red Man Verified 08/10/18 08:20 Syndrome Constitutional: Reports: fever Eyes: Denies: eye pain ENT ED: Denies: ear pain Cardiovascular: Denies: chest pain Respiratory: Denies: cough Gastrointestinal: Denies: abdominal pain Genitourinary: Denies: urgency Musculoskeletal: Denies: back pain Integumentary: Reports: lesions (a nodule around open wound). Denies: rash Neurological: Denies: headache Psychiatric: Denies: anxiety Endocrine: Denies: fatigue Hematological/Lymphatic: Denies: easy bleeding Allergic/Immunologic: Denies: facial swelling Past Medical History - Past Medical History Medical history: Reports: cancer, diabetes, GERD, hyperlipidemia, hypertension, other Psychiatric history: Reports: no psych history - Social History Smoking Status: Never smoker Smokeless Tobacco Status: No Alcohol use: Reports: none Drug use: Reports: none Physical Exam - General Limitations: no limitations General appearance: alert, in no apparent distress - Head Head exam: atraumatic - Eye Eye exam: Present: normal appearance. Absent: scleral icterus, conjunctival injection - ENT ENT exam: normal exam - Neck Neck exam: Present: normal inspection - Chest Chest inspection: Present: normal inspection - Respiratory Respiratory exam: Present: normal lung sounds bilaterally. Absent: respiratory distress - Cardiovascular Cardiovascular exam: Present: tachycardia - Abdominal Exam Abdominal exam: Present: soft, tenderness (a 10x10 induration right side open wound, erythema, warmth and tender to palpation, a small opening noted with purulent drainage) - Extremities Exam Extremities exam: Present: normal inspection - Expanded Lower Extremity Exam Neurovascular/Tendon exam: Present: normal capillary refill. Absent: pulse deficit - Back Exam Back exam: Present: normal inspection - Neurological Exam Neurological exam: Present: alert, oriented X3 - Psychiatric Psychiatric exam: Present: normal affect - Skin Skin exam: Present: warm. Absent: intact (see abdomen exam) Course Vital Signs Temperature 98.0 F 08/10/18 08:17 Pulse Rate 103 08/10/18 08:17 Respiratory Rate 18 08/10/18 08:17 Blood Pressure 94/62 08/10/18 08:17 O2 Sat by Pulse Oximetry 94 08/10/18 08:17 Temperature 98.0 F 08/10/18 08:24 Pulse Rate 92 08/10/18 10:54 Respiratory Rate 18 08/10/18 10:54 Blood Pressure 85/37 08/10/18 10:54 O2 Sat by Pulse Oximetry 95 08/10/18 10:54 Oxygen Delivery Oxygen Delivery Room Air Medical Decision Making - [facility] Narrative Medical decision making narrative: 57 year old female with chronic open surgical wound in abdomen presents with fever and abscess around open wound. Pt's temperature was 100.6 at home. Physical exam: tachycardia and hypotension, 10x10 cm induration in right side open wound, warmth and tender to palpation, a small opening noted with pus drainage. Pt's white cell 16, elevated troponin. Lactic acid negative. Sepsis protocol started. saw the patient as well. Will contact dr. Sutton for admittion. Abdomen CT had been held for now due to unstable vitals. IV fluids and antibiotics started. Critical care provided in ER. 10: 00 am, contacted Dr. Sutton's office 10:45 am: Jyoti Sutton WARPER CREELER in bedside for evaluation. pt will be admitted to Sugical service. - Lab Data Lab results reviewed: Yes I reviewed the patient's lab results. Result diagrams: 08/10/18 08:30 08/10/18 08:30 Lab Results 08/10/18 08/10/18 08/10/18 Range/Units 08:30 08:30 08:30 WBC 16.6 H (4.3-11.1) K/mcL RBC 3.62 L (3.82-4.97) M/mcL Hgb 9.6 L (11.5-15.4) g/dL Hct 31.3 L (35.3-44.9) % MCV 86.5 (83.0-100.0) fL MCH 26.5 L (28.0-33.3) pg MCHC 30.7 L (31.6-35.5) g/dL RDW 15.4 H (11.5-14.5) % Plt Count 388 (140-400) K/mcL MPV 9.0 L (9.4-12.4) fL Immature Gran % 0.6 (0-4) % Seg Neutrophils % 75.7 % Lymphocytes % 6.6 % Monocytes % 8.4 % Eosinophils % 8.4 % Basophils % 0.3 % Neutrophils # 12.6 H (1.6-8.9) K/mcL Lymphocytes # 1.1 (0.6-4.6) K/mcL Monocytes # 1.4 H (0.0-1.3) K/mcL Eosinophils # 1.4 H (0.0-0.6) K/mcL Basophils # 0.1 (0.0-0.2) K/mcL PT 14.2 H (9.4-12.1) Seconds INR 1.3 APTT 30.2 (26.0-36.0) Seconds Sodium 136 (136-145) mEq/L Potassium 4.4 (3.5-5.1) mEq/L Chloride 96 L (98-107) mEq/L Carbon Dioxide 28 (23-29) mEq/L BUN 27 H (6-20) mg/dL Creatinine 1.33 H (0.60-1.20) mg/dL Est GFR ( Amer) 50 L (> 60) Est GFR (Non-Af Amer) 41 L (> 60) BUN/Creatinine Ratio 20 (6-26) Glucose 152 H (70-105) mg/dL Calculated Osmolality 290 (280-300) Lactic Acid (0.5-2.2) mmol/L Calcium 9.4 (8.6-10.3) mg/dL Phosphorus 4.7 H (2.7-4.5) mg/dL Magnesium 1.9 (1.6-2.6) mg/dL Total Bilirubin 0.5 (0.3-1.0) mg/dL Direct Bilirubin 0.1 (0.0-0.2) mg/dL Indirect Bilirubin 0.4 (0.0-1.2) mg/dL AST 14 (13-39) Units/L ALT 14 (7-52) Units/L Alkaline Phosphatase 107 H (34-104) Units/L Troponin I 0.33 H* (< 0.04) ng/mL B-Natriuretic Peptide (Less than 100) pg/mL Serum Total Protein 7.2 (6.4-8.9) g/dL Albumin 3.3 L (3.5-5.7) g/dL Globulin 3.9 H (2.4-3.5) g/dL Albumin/Globulin Ratio 0.8 L (1.1-2.2) Lipase 26 (11-82) Units/L Random Cortisol 9.9 mcg/dl Urine Color (Yellow) Urine Clarity (Clear) Urine pH (5.0-8.0) pH Units Ur Specific [place] (1.010-1.025) Urine Protein (Neg-Trace) mg/dL Urine Glucose (UA) (Normal) mg/dL Urine Ketones (Negative) mg/dL Urine Blood (Negative) Urine Nitrite (Negative) Urine Bilirubin (Negative) Urine Urobilinogen (Normal) mg/dL Ur Leukocyte Esterase (Negative) Urine Microscopic RBC (0-3) per hpf Urine Microscopic WBC (0-3) per hpf Ur Squamous Epith Cells (None-Few) per lpf Ur Renal Epithelial Cell (None-Few) per hpf Urine Bacteria (None-Few) per hpf Hyaline Casts (None-Few) per lpf Urine Mucus (Few) Ur Culture Indicated? (NO) 08/10/18 08/10/18 08/10/18 Range/Units 08:30 08:30 10:25 WBC (4.3-11.1) K/mcL RBC (3.82-4.97) M/mcL Hgb (11.5-15.4) g/dL Hct (35.3-44.9) % MCV (83.0-100.0) fL MCH (28.0-33.3) pg MCHC (31.6-35.5) g/dL RDW (11.5-14.5) % Plt Count (140-400) K/mcL MPV (9.4-12.4) fL Immature Gran % (0-4) % Seg Neutrophils % % Lymphocytes % % Monocytes % % Eosinophils % % Basophils % % Neutrophils # (1.6-8.9) K/mcL Lymphocytes # (0.6-4.6) K/mcL Monocytes # (0.0-1.3) K/mcL Eosinophils # (0.0-0.6) K/mcL Basophils # (0.0-0.2) K/mcL PT (9.4-12.1) Seconds INR APTT (26.0-36.0) Seconds Sodium (136-145) mEq/L Potassium (3.5-5.1) mEq/L Chloride (98-107) mEq/L Carbon Dioxide (23-29) mEq/L BUN (6-20) mg/dL Creatinine (0.60-1.20) mg/dL Est GFR ( Amer) (> 60) Est GFR (Non-Af Amer) (> 60) BUN/Creatinine Ratio (6-26) Glucose (70-105) mg/dL Calculated Osmolality (280-300) Lactic Acid 1.4 (0.5-2.2) mmol/L Calcium (8.6-10.3) mg/dL Phosphorus (2.7-4.5) mg/dL Magnesium (1.6-2.6) mg/dL Total Bilirubin (0.3-1.0) mg/dL Direct Bilirubin (0.0-0.2) mg/dL Indirect Bilirubin (0.0-1.2) mg/dL AST (13-39) Units/L ALT (7-52) Units/L Alkaline Phosphatase (34-104) Units/L Troponin I (< 0.04) ng/mL B-Natriuretic Peptide 44 (Less than 100) pg/mL Serum Total Protein (6.4-8.9) g/dL Albumin (3.5-5.7) g/dL Globulin (2.4-3.5) g/dL Albumin/Globulin Ratio (1.1-2.2) Lipase (11-82) Units/L Random Cortisol mcg/dl Urine Color Yellow (Yellow) Urine Clarity Hazy A (Clear) Urine pH 5.5 (5.0-8.0) pH Units Ur Specific [place] 1.017 (1.010-1.025) Urine Protein Negative (Neg-Trace) mg/dL Urine Glucose (UA) Normal (Normal) mg/dL Urine Ketones Negative (Negative) mg/dL Urine Blood Negative (Negative) Urine Nitrite Negative (Negative) Urine Bilirubin Negative (Negative) Urine Urobilinogen Normal (Normal) mg/dL Ur Leukocyte Esterase Moderate H (Negative) Urine Microscopic RBC 0-3 (0-3) per hpf Urine Microscopic WBC 15-30 H (0-3) per hpf Ur Squamous Epith Cells Many H (None-Few) per lpf Ur Renal Epithelial Cell Few (None-Few) per hpf Urine Bacteria None Seen (None-Few) per hpf Hyaline Casts None Seen (None-Few) per lpf Urine Mucus Few (Few) Ur Culture Indicated? NO. A (NO) Attestation Statement - Attestation Attestation: I, Ahmet Redd DO have provided [id number] time during the care of this patient. Detailed review the presentation, symptoms, medical history were discussed and reviewed with the advanced practice provider Milton Vazquez PA-C/ORDNANCE ENGINEER. Medical intervention labs and imaging studies were reviewed in detail. See full documentation of physical exam and course of care in the advanced practice provider's note. I agree with the determined course of care, medical intervent ion and disposition put forth by the advanced practice provider. See below documentation for changes or alterations in documentation.
[2018-08-10 09:12] LABS: Basophils # 0.1 K/mcL (0.0-0.2); Basophils % 0.3 %; Eosinophils # 1.4 K/mcL (0.0-0.6); Eosinophils % 8.4 %; Hematocrit 31.3 % (35.3-44.9); Hemoglobin 9.6 g/dL (11.5-15.4); Immature Granulocytes % 0.6 % (0-4); Lymphocytes # 1.1 K/mcL (0.6-4.6); Lymphocytes % 6.6 %; Mean Corpuscular HGB Conc 30.7 g/dL (31.6-35.5); Mean Corpuscular Hemoglobin 26.5 pg (28.0-33.3); Mean Corpuscular Volume 86.5 fL (83.0-100.0); Monocytes # 1.4 K/mcL (0.0-1.3); Monocytes % 8.4 %; Neutrophils # 12.6 K/mcL (1.6-8.9); Platelet Count 388 K/mcL (140-400); Red Blood Count 3.62 M/mcL (3.82-4.97); Red Cell Distribution Width 15.4 % (11.5-14.5); Segmented Neutrophils % 75.7 %
[2018-08-10 09:20] LABS: INR 1.3; Prothrombin Time 14.2 Seconds (9.4-12.1)
[2018-08-10 09:23] LABS: Activated Partial Thrombo Time 30.2 Seconds (26.0-36.0)
[2018-08-10] MEDS: 0.9 % Sodium Chloride 1,000 ML IVC SCH ×4 (09:26→18:39)
[2018-08-10] MEDS ORDERED: Hydrocortisone Sodium Succ 100 MG/2 ML VIAL IVP ONE (09:32)
[2018-08-10 09:38] LABS: Albumin 3.3 g/dL (3.5-5.7); Albumin/Globulin Ratio 0.8 (1.1-2.2); Bilirubin,Direct 0.1 mg/dL (0.0-0.2); Bilirubin,Indirect 0.4 mg/dL (0.0-1.2); Bilirubin,Total 0.5 mg/dL (0.3-1.0); Calcium 9.4 mg/dL (8.6-10.3); Globulin 3.9 g/dL (2.4-3.5); Magnesium 1.9 mg/dL (1.6-2.6); Phosphorous 4.7 mg/dL (2.7-4.5); Potassium 4.4 mEq/L (3.5-5.1); Total Protein 7.2 g/dL (6.4-8.9); Troponin I 0.33 ng/mL (< 0.04)
[2018-08-10] MEDS ORDERED: Isovue-370 500 ML INFUS..BTL IV ONE (09:40)
--- NOTE | 2018-08-10 09:58 | Emergency Department Note ---
Disposition Clinical Impression: Fever, Hypotension, Elevated troponin, Acute kidney injury, Sepsis Non-healing surgical wound Qualifiers: Encounter type: subsequent encounter Qualified Code(s): T81.89XD - Other complications of procedures, not elsewhere classified, subsequent encounter Disposition: Admitted As Inpatient Condition: Fair Referrals: Michel Wynn DO [Primary Care Provider] - Forms: ED Satisfaction Letter Time of Disposition: 11:48 General Adult HPI - General Chief complaint: ED Wound/Laceration Stated complaint: Possible sepsis, wound infection Time Seen by Provider: 08/10/18 08:24 Source: family Mode of arrival: ambulatory Limitations: no limitations - History of Present Illness Location: abdomen Pain Scale: 3 - Related Data Home Medications Medication Instructions Recorded Confirmed Ascorbic Acid/Vitamin E/Biotin 1 tab PO DAILY 07/15/18 07/26/18 [Hair Skin Nails-Biotin Gummies] Cyanocobalamin (Vitamin B-12) 1,000 mcg PO DAILY 07/15/18 07/26/18 [Vitamin B-12] Lactobacillus Combination No.8 1 cap PO DAILY 07/15/18 07/26/18 [Adult Probiotic] Lisinopril 2.5 mg PO DAILY 07/15/18 07/26/18 Metformin HCl [Glucophage] 500 mg PO BID 07/15/18 07/26/18 Mv,Ca,Min/Iron/FA/Guarana/Caff 1 tab PO DAILY 07/15/18 07/26/18 [One-A-Day Women's Tablet] [place] [address]-3/Dha/Epa/Fish Oil [Fish Oil 1 cap PO DAILY 07/15/18 07/26/18 1,000 mg Softgel] Potassium Chloride [K-Tab ER] 10 meq PO DAILY 07/15/18 07/26/18 Pravastatin Sodium [Pravachol] 20 mg PO HS 07/15/18 07/26/18 rOPINIRole [Requip] 0.5 mg PO HS 07/15/18 07/26/18 Amoxicillin/Clavulanate [Augmentin] 875 mg PO BID 08/10/18 08/10/18 Docusate [Colace] 100 mg PO Q12H PRN 08/10/18 08/10/18 Ibuprofen 800 mg PO Q8H PRN 08/10/18 08/10/18 Previous Rx's Medication Instructions Recorded Ondansetron HCl [Zofran] 4 mg PO Q6HR PRN #15 tab 07/16/18 HYDROcodone/Acet 7.5/325 mg [[place] 1 tab PO Q6HR PRN 7 Days #30 tablet 07/30/18 7.5-325 mg] Allergies Allergy/AdvReac Type Severity Reaction Status Date / Time adhesive tape AdvReac See Verified 08/10/18 09:26 Comments simvastatin AdvReac Muscle Pain Verified 08/10/18 08:20 vancomycin AdvReac Red Man Verified 08/10/18 08:20 Syndrome Constitutional: Reports: fever Eyes: Denies: eye pain ENT ED: Denies: ear pain Cardiovascular: Denies: chest pain Respiratory: Denies: cough Gastrointestinal: Denies: abdominal pain Genitourinary: Denies: urgency Musculoskeletal: Denies: back pain Integumentary: Reports: lesions (a nodule around open wound). Denies: rash Neurological: Denies: headache Psychiatric: Denies: anxiety Endocrine: Denies: fatigue Hematological/Lymphatic: Denies: easy bleeding Allergic/Immunologic: Denies: facial swelling Past Medical History - Past Medical History Medical history: Reports: cancer, diabetes, GERD, hyperlipidemia, hypertension, other Psychiatric history: Reports: no psych history - Social History Smoking Status: Never smoker Smokeless Tobacco Status: No Alcohol use: Reports: none Drug use: Reports: none Physical Exam - General Limitations: no limitations General appearance: alert, in no apparent distress Course Vital Signs Temperature 98.0 F 08/10/18 08:17 Pulse Rate 103 08/10/18 08:17 Respiratory Rate 18 08/10/18 08:17 Blood Pressure 94/62 08/10/18 08:17 O2 Sat by Pulse Oximetry 94 08/10/18 08:17 Temperature 98.0 F 08/10/18 08:24 Pulse Rate 92 08/10/18 10:54 Respiratory Rate 18 08/10/18 10:54 Blood Pressure 85/37 08/10/18 10:54 O2 Sat by Pulse Oximetry 95 08/10/18 10:54 Oxygen Delivery Oxygen Delivery Room Air Medical Decision Making - Lab Data Result diagrams: 08/10/18 08:30 08/10/18 08:30 Lab Results 08/10/18 08/10/18 08/10/18 Range/Units 08:30 08:30 08:30 WBC 16.6 H (4.3-11.1) K/mcL RBC 3.62 L (3.82-4.97) M/mcL Hgb 9.6 L (11.5-15.4) g/dL Hct 31.3 L (35.3-44.9) % MCV 86.5 (83.0-100.0) fL MCH 26.5 L (28.0-33.3) pg MCHC 30.7 L (31.6-35.5) g/dL RDW 15.4 H (11.5-14.5) % Plt Count 388 (140-400) K/mcL MPV 9.0 L (9.4-12.4) fL Immature Gran % 0.6 (0-4) % Seg Neutrophils % 75.7 % Lymphocytes % 6.6 % Monocytes % 8.4 % Eosinophils % 8.4 % Basophils % 0.3 % Neutrophils # 12.6 H (1.6-8.9) K/mcL Lymphocytes # 1.1 (0.6-4.6) K/mcL Monocytes # 1.4 H (0.0-1.3) K/mcL Eosinophils # 1.4 H (0.0-0.6) K/mcL Basophils # 0.1 (0.0-0.2) K/mcL PT 14.2 H (9.4-12.1) Seconds INR 1.3 APTT 30.2 (26.0-36.0) Seconds Sodium 136 (136-145) mEq/L Potassium 4.4 (3.5-5.1) mEq/L Chloride 96 L (98-107) mEq/L Carbon Dioxide 28 (23-29) mEq/L BUN 27 H (6-20) mg/dL Creatinine 1.33 H (0.60-1.20) mg/dL Est GFR ( Amer) 50 L (> 60) Est GFR (Non-Af Amer) 41 L (> 60) BUN/Creatinine Ratio 20 (6-26) Glucose 152 H (70-105) mg/dL Calculated Osmolality 290 (280-300) Lactic Acid (0.5-2.2) mmol/L Calcium 9.4 (8.6-10.3) mg/dL Phosphorus 4.7 H (2.7-4.5) mg/dL Magnesium 1.9 (1.6-2.6) mg/dL Total Bilirubin 0.5 (0.3-1.0) mg/dL Direct Bilirubin 0.1 (0.0-0.2) mg/dL Indirect Bilirubin 0.4 (0.0-1.2) mg/dL AST 14 (13-39) Units/L ALT 14 (7-52) Units/L Alkaline Phosphatase 107 H (34-104) Units/L Troponin I 0.33 H* (< 0.04) ng/mL B-Natriuretic Peptide (Less than 100) pg/mL Serum Total Protein 7.2 (6.4-8.9) g/dL Albumin 3.3 L (3.5-5.7) g/dL Globulin 3.9 H (2.4-3.5) g/dL Albumin/Globulin Ratio 0.8 L (1.1-2.2) Lipase 26 (11-82) Units/L Random Cortisol 9.9 mcg/dl Urine Color (Yellow) Urine Clarity (Clear) Urine pH (5.0-8.0) pH Units Ur Specific [place] (1.010-1.025) Urine Protein (Neg-Trace) mg/dL Urine Glucose (UA) (Normal) mg/dL Urine Ketones (Negative) mg/dL Urine Blood (Negative) Urine Nitrite (Negative) Urine Bilirubin (Negative) Urine Urobilinogen (Normal) mg/dL Ur Leukocyte Esterase (Negative) Urine Microscopic RBC (0-3) per hpf Urine Microscopic WBC (0-3) per hpf Ur Squamous Epith Cells (None-Few) per lpf Ur Renal Epithelial Cell (None-Few) per hpf Urine Bacteria (None-Few) per hpf Hyaline Casts (None-Few) per lpf Urine Mucus (Few) Ur Culture Indicated? (NO) 08/10/18 08/10/18 08/10/18 Range/Units 08:30 08:30 10:25 WBC (4.3-11.1) K/mcL RBC (3.82-4.97) M/mcL Hgb (11.5-15.4) g/dL Hct (35.3-44.9) % MCV (83.0-100.0) fL MCH (28.0-33.3) pg MCHC (31.6-35.5) g/dL RDW (11.5-14.5) % Plt Count (140-400) K/mcL MPV (9.4-12.4) fL Immature Gran % (0-4) % Seg Neutrophils % % Lymphocytes % % Monocytes % % Eosinophils % % Basophils % % Neutrophils # (1.6-8.9) K/mcL Lymphocytes # (0.6-4.6) K/mcL Monocytes # (0.0-1.3) K/mcL Eosinophils # (0.0-0.6) K/mcL Basophils # (0.0-0.2) K/mcL PT (9.4-12.1) Seconds INR APTT (26.0-36.0) Seconds Sodium (136-145) mEq/L Potassium (3.5-5.1) mEq/L Chloride (98-107) mEq/L Carbon Dioxide (23-29) mEq/L BUN (6-20) mg/dL Creatinine (0.60-1.20) mg/dL Est GFR ( Amer) (> 60) Est GFR (Non-Af Amer) (> 60) BUN/Creatinine Ratio (6-26) Glucose (70-105) mg/dL Calculated Osmolality (280-300) Lactic Acid 1.4 (0.5-2.2) mmol/L Calcium (8.6-10.3) mg/dL Phosphorus (2.7-4.5) mg/dL Magnesium (1.6-2.6) mg/dL Total Bilirubin (0.3-1.0) mg/dL Direct Bilirubin (0.0-0.2) mg/dL Indirect Bilirubin (0.0-1.2) mg/dL AST (13-39) Units/L ALT (7-52) Units/L Alkaline Phosphatase (34-104) Units/L Troponin I (< 0.04) ng/mL B-Natriuretic Peptide 44 (Less than 100) pg/mL Serum Total Protein (6.4-8.9) g/dL Albumin (3.5-5.7) g/dL Globulin (2.4-3.5) g/dL Albumin/Globulin Ratio (1.1-2.2) Lipase (11-82) Units/L Random Cortisol mcg/dl Urine Color Yellow (Yellow) Urine Clarity Hazy A (Clear) Urine pH 5.5 (5.0-8.0) pH Units Ur Specific [place] 1.017 (1.010-1.025) Urine Protein Negative (Neg-Trace) mg/dL Urine Glucose (UA) Normal (Normal) mg/dL Urine Ketones Negative (Negative) mg/dL Urine Blood Negative (Negative) Urine Nitrite Negative (Negative) Urine Bilirubin Negative (Negative) Urine Urobilinogen Normal (Normal) mg/dL Ur Leukocyte Esterase Moderate H (Negative) Urine Microscopic RBC 0-3 (0-3) per hpf Urine Microscopic WBC 15-30 H (0-3) per hpf Ur Squamous Epith Cells Many H (None-Few) per lpf Ur Renal Epithelial Cell Few (None-Few) per hpf Urine Bacteria None Seen (None-Few) per hpf Hyaline Casts None Seen (None-Few) per lpf Urine Mucus Few (Few) Ur Culture Indicated? NO. A (NO) Attestation Statement - Attestation Attestation: I, Ahmet Redd DO have provided [id number] time during the care of this patient. Detailed review the presentation, symptoms, medical history were discussed and reviewed with the advanced practice provider Milton Vazquez PA-C/[employer]. Medical intervention labs and imaging studies were reviewed in detail. See full documentation of physical exam and course of care in the advanced practice provider's note. I agree with the determined course of care, medical intervention and disposition put forth by the advanced practice provider. See below documentation for changes or alterations in documentation. . 57-year-old female presents to the emergency room at the recommendation of a surgical provider for evaluation of hypotension fever and tachycardia. Patient is a very long and complex surgical history over the last year. She had a robotic gynecologic procedure completed that ended up with postoperative infection and perforation of the bowel. She denied having a mesh infection is well that is required to 100 and some days of an open wound treatment we will wound VAC antibiotics and multiple surgical evaluations. She is currently under the care of Dr. Jack Sutton. Patient presentation here was hypotensive tachycardic and febrile. Fluids and sepsis evaluation were immediately started at this time. First doses of antibiotics including linezolid and Zosyn were ordered at this point for abdominal evaluation as well as skin infection. Patie nt will be provided with 3 L of fluid patient is concerning for intra-abdominal infection as well as wound infection. The area on the wound in the abdomen does have erythema warmth and discharge is progressively worse over the last several days. Patient has had a fever up to 102 at home. Patient is otherwise alert she is oriented she speaks in full sentences. Pupils are equal and reactive lynnette pharynx is patent. Mucous membranes are slightly dry but otherwise unremarkable. Lungs are clear to auscultation heart is regular but tachycardic. Abdomen is soft there is no specific guarding rigidity or peritoneal symptoms noted. Patient has no signs of pitting edema in the extremities and there is no other complaints including denying vaginal discharge bleeding or dysuria. Patient will have detailed workup completed here today with CBC chemistry is there are function testing lipase blood cultures wound culture as well as IV antibiotics fluid resuscitation lactic acid and continuation of care. She will most likely required admission for stabilization of what appears to be septic-like presentation secondary to an abdominal wound. 2 large-bore IVs were placed in the bilateral antecubital fossa and fluids will be provided through this. Disposition pending the treatment course and evaluation. See detailed documentation the physical exam, medical intervention, medical decision-making and disposition in the advanced practice provider's note. 1000 Patient has received 1 L of fluid out of the 3 vertebra ordered here now on antibiotics our infusing. Vital signs are responsive to the fluids at this point. Patient's mental status is at baseline she speaking full sentences in no distress. Denies any specific history of congestive heart failure cardiac related disease. On-call surgeon Dr. Prather was contacted and he will discuss the case with the operative physician to make sure that CT imaging is required at this time. Patient does have a newly elevated creatinine and a decreased GFR. A discussion of central line was discussed and the patient did not want one at this time but if she is persistently hypotensive she will require one. Patient also has an elevated troponin despite the denial of chest pain at this time. All the symptoms appear to be secondary to multiorgan dysfunction secondary to potential infection. We will continue to monitor here and treat appropriately. Initial lactic acid is normal. Admission process to be completed once the workup is established. Surgical evaluation will be completed here in the emergency room 1045 Surgery is at the bedside at this time evaluating the patient's abdomen. no ct imaging requested at this time. They are now requesting central line axis at this time. Patient will be admitted directly to their service. No other concerns or issues noted this time. Patient will be admitted for continuation of care.
[2018-08-10 10:37] LABS: Bilirubin,Urine Negative (Negative); Blood,Urine Negative (Negative); Color,Urine Yellow (Yellow); Glucose,Urine (UA) Normal (Normal); Ketones,Urine Negative (Negative); Leukocyte Esterase,Urine Moderate (Negative); Nitrite,Urine Negative (Negative); PH,Urine 5.5 pH Units (5.0-8.0); Protein,Urine Negative (Neg-Trace); Specific Gravity,Urine 1.017 (1.010-1.025); Urobilinogen,Urine Normal (Normal)
[2018-08-10 10:40] LABS: Bacteria,Urine None Seen per hpf (None-Few); Hyaline Casts,Urine None Seen per lpf (None-Few); RBC,Urine 0-3 per hpf (0-3); Squamous Epithelial Cell,Urine Many per lpf (None-Few); WBC,Urine 15-30 per hpf (0-3)
[2018-08-10 10:46] LABS: Clarity,Urine Hazy (Clear)
[2018-08-10 10:55] LABS: Mucus,Urine Few (Few); Renal Epithelial Cells,Urine Few per hpf (None-Few)
[2018-08-10] MEDS ORDERED: Naloxone 0.4 MG/ML INJ IVP PRN (10:59)
[2018-08-10] MEDS ORDERED: Ondansetron 4 MG/2 ML VIAL IVP PRN (10:59)
[2018-08-10] MEDS ORDERED: *HR* Dextrose 50 % in Water (Syg) 50 ML SYRINGE IVP PRN (11:07)
[2018-08-10] MEDS ORDERED: Dextrose Gel 15 GM/37.5 ML TUBE PO PRN ×2 (11:07)
[2018-08-10] MEDS ORDERED: D5% in Water 1,000 ML IVC PRN (11:07)
--- NOTE | 2018-08-10 11:15 | General Surg History&Physical ---
Date of Encounter: 08/10/18 Time of Encounter: 10:30 Assessment and Plan (1) Non-healing surgical wound Current Visit: No Status: Acute The assessment and plan as outlined above was discussed with the patient and/or family members who expressed understanding and agreement. All questions were answered. Plan to perform bedside wound evaluation today with removal of skin bridge Replace wound vac after wound evaluation Diabetic diet Supportive care IV antibiotics- Zosyn and PO bactrim PPI therapy daily IS every 1 hour while awake Repeat am labs- CBC, BMP Qualifiers: Encounter type: subsequent encounter Qualified Code(s): T81.89XD - Other complications of procedures, not elsewhere classified, subsequent encounter (2) Hypotension Current Visit: Yes Status: Acute The assessment and plan as outlined above was discussed with the patient and/or family members who expressed understanding and agreement. All questions were answered. Improved with fluid bolus in the ED IV fluids- 125ml/hour Continue to monitor and treat as necessary Qualifiers: Hypotension type: hypotension due to hypovolemia Qualified Code(s): I95.89 - Other hypotension; E86.1 - Hypovolemia (3) Acute kidney injury Current Visit: Yes Status: Acute The assessment and plan as outlined above was discussed with the patient and/or family members who expressed understanding and agreement. All questions were answered. Cr- 1.33 Likely secondary to dehydration IV fluids- 125ml/hour Avoid nephrotoxic medications Repeat am labs- BMP (4) Diabetes Current Visit: No Status: Chronic The assessment and plan as outlined above was discussed with the patient and/or family members who expressed understanding and agreement. All questions were answered. 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 All questions were answered. Suspect that this is reactive to dehydration and demand ischemia Will repeat level (6) DVT prophylaxis Current Visit: No Status: Acute The assessment and plan as outlined above was discussed with the patient and/or family members who expressed understanding and agreement. All questions were answered. Heparin 5,000 units SQ twice daily for DVT prophylaxis Ambulate hallways TID with assistance EPCDs to bilateral lower extremities for DVT prophylaxis History of Present Illness Chief complaint: Abdominal pain with purulent discharge; fevers HPI: Ms. Pineda is a 57 year old female who is well known to the surgery practice. She has a complicated surgical history which started in December of 2017 after undergoing a hysterectomy at [facility]. The patient reports that she had a bowel injury at the time of that procedure and was sent home with an open abdominal wound to heal by secondary intention. She reports recurrent issues with wound infections since December. The recurrent wound infections were related to mesh which was contaminated. The patient did undergo a procedure at the end of June 2018 for exploratory laparotomy and removal of the affected portion of mesh with Dr. Sutton. Her midline was left open and a wound vac was applied. The patients course was complicated by a recurrent infection. She was taken back to the operating room on 07/27/[address] Sutton for a Exploratory laparotomy with lysis of adhesions 35 minutes followed by removal of mesh foreign body (complete). The patients wound was again left open and a wound vac was placed. She was treated with IV antibiotics as well. The patient developed an area of erythema and induration to the right lower abdomen 2 days ago. She was placed on Augmentin 2 days ago and her wound vac was replaced. She developed a fever of 100.7 last evening and overall just doesn't feel well. She denies any increased abdominal discomfort. She denies any loss of appetite and states that she had maldivian toast prior to arrival to the ED. She denies any nausea/vomiting. Denies any changes in bowel habits. Denies any difficulty with urination. Denies any chest pains or shortness of breath. She did decompress a large amount of purulent discharge from the bottom of her abdominal wound last night (approximately 1/2 cup was evacuated per family report). The redness did resolve with decompression. She does have new opening in her skin just below the abdominal wound. She is hypotensive and has tachycardia as well as leukocytosis upon presentation in the ED. Surgery has been asked to see and evaluate her for further evaluation. Past Med Surg Social Fam HX - Past Medical History Source: patient, old records reviewed Medical history: cancer, diabetes, GERD, hyperlipidemia, hypertension, other Additional medical history: Kidney tumor, Angiomyolipoma, Vitamin B 12 def, chronic pain, low BP, anemia, ROMARIO, cervical cancer, hernia, obesity, histoplasmosis, ovarian cyst, embolism/thrombosis of internal iliac artery, fibromuscular dysplasia renal artery, RLS, fatty liver, colonic mass/polyp, hypo K+, gallstones Psychiatric history: no psych history - Past Surgical History Surgical History: cholecystectomy, herniorrhaphy, hysterectomy Additional surgical history: Exploratory laparotomy, small bowel resection, kidney tumor removed (left), tumor L leg, cysts on head, hemorhoids, tonsillectomy, teeth, ovarian cyst removal, colonoscopy, BSO, R hemicolectomy, 3 c-sections, teeth extraction (upper), 06/2018- exploratory lap, removal of infected abdominal mesh, 07/27/18- exploratory lap, ANTIONETTE, complete removal of abdominal wall mesh. - Social History Smoking Status: Never smoker Smokeless Tobacco Status: No Alcohol use: none Drug use: none Current living situation: Home, With Family Activity Level: Independent ambulation - Family History Mother Adopted: No Family Member Ethnicity: Non- Living Status: Hx Family Cardiac Disorders: Yes Hx Family Respiratory Disorders: Yes Hx Family Cancer: Yes Hx Family GI Disorders: No Hx Family Endocrine Disorder: Yes Hx Family Neuromuscular Disorders: No Hx Family Neurologic Disorders: No Hx Family HEENT Disorders: No Hx Family Autoimmune Disorders: No Father Family Member Ethnicity: Non- Living Status: Hx Family Cardiac Disorders: Yes Hx Family Respiratory Disorders: No Hx Family Cancer: No Hx Family GI Disorders: No Hx Family Endocrine Disorder: No Hx Family Neuromuscular Disorders: No Hx Family Neurologic Disorders: No Hx Family HEENT Disorders: No Hx Family Autoimmune Disorders: No Medications and Allergies Ascorbic Acid/Vitamin E/Biotin [Hair Skin Nails-Biotin Gummies] 1 tab PO QPM 07/15/18 [History] Cyanocobalamin (Vitamin B-12) [Vitamin B-12] 1,000 mcg PO FR 07/15/18 [History] Lactobacillus Combination No.8 [Adult Probiotic] 1 cap PO QPM 07/15/18 [History] Lisinopril 2.5 mg PO QPM 07/15/18 [History] Metformin HCl [Glucophage] 500 mg PO BID 07/15/18 [History] Mv,Ca,Min/Iron/FA/Guarana/Caff [One-A-Day Women's Tablet] 1 tab PO QPM 07/15/18 [History] [employer]-3/Dha/Epa/Fish Oil [Fish Oil 1,000 mg Softgel] 1 cap PO QPM 07/15/18 [History] Potassium Chloride [K-Tab ER] 10 meq PO QPM 07/15/18 [History] Pravastatin Sodium [Pravachol] 20 mg PO QPM 07/15/18 [History] rOPINIRole [Requip] 0.5 mg PO HS 07/15/18 [History] Ondansetron HCl [Zofran] 4 mg PO Q6HR PRN #15 tab 07/16/18 [Rx] HYDROcodone/Acet 7.5/325 mg [[place] 7.5-325 mg] 1 tab PO Q6HR PRN 7 Days #30 tablet 07/30/18 [Rx] Amoxicillin/Clavulanate [Augmentin] 875 mg PO BID 08/10/18 [History] Docusate [Colace] 100 mg PO Q12H PRN 08/10/18 [History] Ibuprofen 800 mg PO Q8H PRN 08/10/18 [History] Allergy/AdvReac Type Severity Reaction Status Date / Time adhesive tape AdvReac See Verified 08/10/18 09:26 Comments simvastatin AdvReac Muscle Pain Verified 08/10/18 08:20 vancomycin AdvReac Red Man Verified 08/10/18 08:20 Syndrome Review of Systems All systems PM: reviewed and no additional remarkable complaints except as stated (in the HPI) All systems PM: The remainder of the systems were reviewed and are negative General Surgery Exam Initial Vital Signs Temp Pulse Resp BP Pulse Ox 98.0 F 103 18 94/62 94 08/10/18 08:17 08/10/18 08:17 08/10/18 08:17 08/10/18 08:17 08/10/18 08:17 - General physical appearance well developed, well nourished, moderate pain, obese - Eyes PERRL, normal ocular movement - ENT normal mucosa, atraumatic, normocephalic - Neck trachea midline - Respiratory normal respiratory effort, clear to auscultation - Cardiovascular Cardiovascular exam: Present: tachycardia - Abdomen Abdomen general surgery: Present: bowel sounds present, soft, wound (Midline with open wound) - Incision Incision: Present: purulent (bottom of wound (moderate amount)), serosanguinous (Top of wound), open - Integumentary Integumentary general surgery: Present: warm and dry - Neurologic Present: CN 2-12 grossly intact - Psychiatric Psychiatric general surgery: Present: appropriate, oriented to person, oriented to place, oriented to time, speech is normal, memory intact Results - Labs 08/10/18 08:30 08/10/18 08:30 Abnormal lab results WBC 16.6 K/mcL (4.3-11.1) H 08/10/18 08:30 RBC 3.62 M/mcL (3.82-4.97) L 08/10/18 08:30 Hgb 9.6 g/dL (11.5-15.4) L 08/10/18 08:30 Hct 31.3 % (35.3-44.9) L 08/10/18 08:30 MCH 26.5 pg (28.0-33.3) L 08/10/18 08:30 MCHC 30.7 g/dL (31.6-35.5) L 08/10/18 08:30 RDW 15.4 % (11.5-14.5) H 08/10/18 08:30 MPV 9.0 fL (9.4-12.4) L 08/10/18 08:30 Neutrophils # 12.6 K/mcL (1.6-8.9) H 08/10/18 08:30 Monocytes # 1.4 K/mcL (0.0-1.3) H 08/10/18 08:30 Eosinophils # 1.4 K/mcL (0.0-0.6) H 08/10/18 08:30 PT 14.2 Seconds (9.4-12.1) H 08/10/18 08:30 Chloride 96 mEq/L (98-107) L 08/10/18 08:30 BUN 27 mg/dL (6-20) H 08/10/18 08:30 Creatinine 1.33 mg/dL (0.60-1.20) H 08/10/18 08:30 Est GFR ( Amer) 50 (> 60) L 08/10/18 08:30 Est GFR (Non-Af Amer) 41 (> 60) L 08/10/18 08:30 Glucose 152 mg/dL (70-105) H 08/10/18 08:30 Phosphorus 4.7 mg/dL (2.7-4.5) H 08/10/18 08:30 Alkaline Phosphatase 107 Units/L (34-104) H 08/10/18 08:30 Troponin I 0.33 ng/mL (< 0.04) H* 08/10/18 08:30 Albumin 3.3 g/dL (3.5-5.7) L 08/10/18 08:30 Globulin 3.9 g/dL (2.4-3.5) H 08/10/18 08:30 Albumin/Globulin Ratio 0.8 (1.1-2.2) L 08/10/18 08:30 Urine Clarity Hazy (Clear) A 08/10/18 10:25 Ur Leukocyte Esterase Moderate (Negative) H 08/10/18 10:25 Urine Microscopic WBC 15-30 per hpf (0-3) H 08/10/18 10:25 Ur Squamous Epith Cells Many per lpf (None-Few) H 08/10/18 10:25 Ur Culture Indicated? NO. (NO) A 08/10/18 10:25 Diabetes panel 08/10/18 Range/Units 08:30 Sodium 136 (136-145) mEq/L Potassium 4.4 (3.5-5.1) mEq/L Chloride 96 L (98-107) mEq/L Carbon Dioxide 28 (23-29) mEq/L BUN 27 H (6-20) mg/dL Creatinine 1.33 H (0.60-1.20) mg/dL Glucose 152 H (70-105) mg/dL Calcium 9.4 (8.6-10.3) mg/dL AST 14 (13-39) Units/L ALT 14 (7-52) Units/L Alkaline Phosphatase 107 H (34-104) Units/L Albumin 3.3 L (3.5-5.7) g/dL Calcium panel 08/10/18 Range/Units 08:30 Calcium 9.4 (8.6-10.3) mg/dL Phosphorus 4.7 H (2.7-4.5) mg/dL Albumin 3.3 L (3.5-5.7) g/dL Pituitary panel 08/10/18 Range/Units 08:30 Sodium 136 (136-145) mEq/L Potassium 4.4 (3.5-5.1) mEq/L Chloride 96 L (98-107) mEq/L Carbon Dioxide 28 (23-29) mEq/L BUN 27 H (6-20) mg/dL Creatinine 1.33 H (0.60-1.20) mg/dL Glucose 152 H (70-105) mg/dL Calcium 9.4 (8.6-10.3) mg/dL Adrenal panel 08/10/18 Range/Units 08:30 Sodium 136 (136-145) mEq/L Potassium 4.4 (3.5-5.1) mEq/L Chloride 96 L (98-107) mEq/L Carbon Dioxide 28 (23-29) mEq/L BUN 27 H (6-20) mg/dL Creatinine 1.33 H (0.60-1.20) mg/dL Glucose 152 H (70-105) mg/dL Calcium 9.4 (8.6-10.3) mg/dL Total Bilirubin 0.5 (0.3-1.0) mg/dL AST 14 (13-39) Units/L ALT 14 (7-52) Units/L Alkaline Phosphatase 107 H (34-104) Units/L Albumin 3.3 L (3.5-5.7) g/dL All other labs normal. - Attending Attestation For this encounter, I have reviewed the TRANSPORTATION MAINTENANCE SPECIALIST or PA documentation, treatment plan, and medical decision making; and I have had face to face time with this patient.
[2018-08-10] MEDS ORDERED: Insulin LISPRO 300 UNITS/3 ML VIAL SQ SCH (12:00)
[2018-08-10] MEDS: Sulfamethoxazole/Trimeth DS 1 EACH TABLET PO SCH ×2 (13:00→20:38)
[2018-08-10] MEDS: Piperacillin/Tazobactam 3.375 GM in 0.9 % Sodium Chloride Mini Bag 100 ML IVPB SCH (16:09)
[2018-08-10] MEDS: *HR* Metformin 500 MG TABLET PO SCH (18:35)
[2018-08-10] MEDS: (Pravastatin Sodium [Pravachol] 20 MG) PO SCH (18:36)
[2018-08-10] MEDS: Insulin LISPRO 300 UNITS/3 ML VIAL SQ SCH ×2 (18:36→22:53)
[2018-08-10] MEDS: *HR* Heparin 5,000 UNIT/ML VIAL SQ SCH (18:45)
[2018-08-10] MEDS: *HR* HYDROcodone/Acet 7.5/325 mg TABLET PO PRN (20:37)
[2018-08-10] MEDS: rOPINIRole 0.25 MG TABLET PO SCH (20:37)
[2018-08-11] MEDS: Piperacillin/Tazobactam 3.375 GM in 0.9 % Sodium Chloride Mini Bag 100 ML IVPB SCH ×3 (00:05→17:08)
[2018-08-11] MEDS: 0.9 % Sodium Chloride 1,000 ML IVC SCH ×2 (02:52→19:35)
[2018-08-11 04:26] LABS: Basophils % 0.4 %; Eosinophils # 1.2 K/mcL (0.0-0.6); Eosinophils % 12.2 %; Hematocrit 26.9 % (35.3-44.9); Immature Granulocytes % 0.3 % (0-4); Lymphocytes # 1.4 K/mcL (0.6-4.6); Lymphocytes % 13.9 %; Mean Corpuscular HGB Conc 29.7 g/dL (31.6-35.5); Mean Corpuscular Hemoglobin 25.9 pg (28.0-33.3); Mean Corpuscular Volume 87.1 fL (83.0-100.0); Mean Platelet Volume 9.3 fL (9.4-12.4); Monocytes # 0.9 K/mcL (0.0-1.3); Monocytes % 9.1 %; Neutrophils # 6.3 K/mcL (1.6-8.9); Platelet Count 339 K/mcL (140-400); Red Blood Count 3.09 M/mcL (3.82-4.97); Red Cell Distribution Width 15.5 % (11.5-14.5); Segmented Neutrophils % 64.1 %
[2018-08-11 04:43] LABS: BUN/Creatinine Ratio 22 (6-26); Blood Urea Nitrogen 14 mg/dL (6-20); Calcium 8.1 mg/dL (8.6-10.3); Carbon Dioxide 27 mEq/L (23-29); Chloride 109 mEq/L (98-107); Glucose 82 mg/dL (70-105); Osmolality,Calculated 294 (280-300); Sodium 142 mEq/L (136-145); eGFR For Non-African Americans > 60 (> 60)
[2018-08-11] MEDS: *HR* Heparin 5,000 UNIT/ML VIAL SQ SCH ×2 (04:56→17:13)
[2018-08-11] MEDS: *HR* HYDROcodone/Acet 7.5/325 mg TABLET PO PRN ×2 (04:57→17:13)
[2018-08-11] MEDS: *HR* Metformin 500 MG TABLET PO SCH ×2 (07:46→17:07)
[2018-08-11] MEDS: Sulfamethoxazole/Trimeth DS 1 EACH TABLET PO SCH ×2 (07:46→20:37)
[2018-08-11] MEDS: Insulin LISPRO 300 UNITS/3 ML VIAL SQ SCH ×4 (07:47→20:47)
--- NOTE | 2018-08-11 08:11 | Electrocardiograph Report ---
[facility] Test Date: 2018-08-10 Pat Name: Yaneli Pineda Department: [id number] Room: 3A52 Gender: F Tufter Hand: : 1960 Requested By: Ahmet Redd Order Number: [id number] Reading MD: Shola Bucio Measurements Intervals [place] Rate: 100 P: 56 MO: 137 QRS: 8 QRSD: 86 T: 24 QT: 322 QTc: 416 Interpretive Statements Sinus tachycardia Low voltage, precordial leads Baseline wander in lead(s) II III aVR aVF V2 V3 Electronically Signed On 08-11-2018 8:09:40 EDT by Shola Bucio
--- NOTE | 2018-08-11 12:38 | General Surgery Progress Note ---
Date of Encounter: 08/11/18 Time of Encounter: 12:38 - Assessment and Plan (1) Non-healing surgical wound Current Visit: No Status: Acute Wound vac replaced today. Can changes schedule to // at d/c. Diabetic diet continue G.I. and DVT prophylaxis continue IV antibiotics for another 24 hours will plan for DC in the a.m. pending clinical course repeat a.m. labs acute kidney injury and elevated troponin completely resolved. We will continue to closely monitor. Qualifiers: Encounter type: subsequent encounter Qualified Code(s): T81.89XD - Other complications of procedures, not elsewhere classified, subsequent encounter (2) Hypotension Current Visit: Yes Status: Acute Currently normotensive. Qualifiers: Hypotension type: hypotension due to hypovolemia Qualified Code(s): I95.89 - Other hypotension; E86.1 - Hypovolemia (3) Acute kidney injury Current Visit: Yes Status: Acute Resolved Subjective Patient reports: no new complaints, feels better, tolerating liquids well, voiding w/o difficulty, flatus, bowel movement, afebrile Objective Vital Signs - Last 8 Hours Temp Pulse Resp BP Pulse Ox 08/11/18 10:21 98.3 F 89 15 93/54 95 08/11/18 07:14 97.7 F 90 15 122/64 96 08/11/18 04:48 98 F 96 15 102/69 96 Intake and Output 08/10/18 08/11/18 08/11/18 23:59 07:59 15:59 Intake Total 1100 / 1100 1450 / 1450 Output Total 0 / 0 Balance 1100 / 1100 1450 / 1450 Intake: IV Fluids 1100 / 1100 1100 / 1100 0.9 % Sodium Chloride 1,000 ML 1000 / 1000 1000 / 1000 @ 125 mls/hr IVC .Q8H MARKOS Rx#: [id number] Zosyn 3.375 GM In 0.9 % Sodium 100 / 100 100 / 100 Chloride (Mini-Bag +) 100 ML @ 25 mls/hr IVPB Q8HR MARKOS Rx#: [id number] Oral 350 / 350 Output: Urine 0 / 0 Other: Stool Size Small # Voids 2 3 1 # Bowel Movements 0 Blood Glucose* 179 97 - General physical appearance no distress, other ([place] seal has broken.) - Eyes normal ocular movement - ENT normal mucosa - Neck Neck exam: trachea midline - Respiratory normal expansion, normal respiratory effort, clear to auscultation - Cardiovascular Cardiovascular exam: Present: distant heart sounds - Abdomen Abdomen: Present: bowel sounds present, soft, tender, wound (Midline abdominal wound vac seal was lost. [place] replaced.) - Neurologic normal sensation - Musculoskeletal normal posture - Psychiatric oriented to time, oriented to person, oriented to place - Labs 08/11/18 03:19 08/11/18 03:19 Diabetes panel 08/11/18 Range/Units 03:19 Sodium 142 (136-145) mEq/L Potassium 4.0 (3.5-5.1) mEq/L Chloride 109 H (98-107) mEq/L Carbon Dioxide 27 (23-29) mEq/L BUN 14 (6-20) mg/dL Creatinine 0.65 (0.60-1.20) mg/dL Glucose 82 (70-105) mg/dL Calcium 8.1 L (8.6-10.3) mg/dL Calcium panel 08/11/18 Range/Units 03:19 Calcium 8.1 L (8.6-10.3) mg/dL Pituitary panel 08/11/18 Range/Units 03:19 Sodium 142 (136-145) mEq/L Potassium 4.0 (3.5-5.1) mEq/L Chloride 109 H (98-107) mEq/L Carbon Dioxide 27 (23-29) mEq/L BUN 14 (6-20) mg/dL Creatinine 0.65 (0.60-1.20) mg/dL Glucose 82 (70-105) mg/dL Calcium 8.1 L (8.6-10.3) mg/dL Adrenal panel 08/11/18 Range/Units 03:19 Sodium 142 (136-145) mEq/L Potassium 4.0 (3.5-5.1) mEq/L Chloride 109 H (98-107) mEq/L Carbon Dioxide 27 (23-29) mEq/L BUN 14 (6-20) mg/dL Creatinine 0.65 (0.60-1.20) mg/dL Glucose 82 (70-105) mg/dL Calcium 8.1 L (8.6-10.3) mg/dL Consult Discharge Plan - Plan Referrals: Michel Wynn DO [Primary Care Provider] -
[2018-08-11 14:46] LABS: Acinetobacter baumannii by PCR Not Detected (Not Detect); Candida albicans by PCR Not Detected (Not Detect); Candida glabrata by PCR Not Detected (Not Detect); Candida krusei by PCR Not Detected (Not Detect); Candida parapsilosis by PCR Not Detected (Not Detect); Candida tropicalis by PCR Not Detected (Not Detect); Enterobacter cloacae Cmplx PCR Not Detected (Not Detect); Enterobacteriaceae by PCR Not Detected (Not Detect); Enterococcus by PCR Not Detected (Not Detect); Escherichia coli by PCR Not Detected (Not Detect); Klebsiella oxytoca by PCR Not Detected (Not Detect); Klebsiella pneumoniae by PCR Not Detected (Not Detect); Proteus by PCR Not Detected (Not Detect); Pseudomonas aeruginosa by PCR Not Detected (Not Detect); Serratia marcescens by PCR Not Detected (Not Detect); Staphylococcus aureus by PCR Not Detected (Not Detect); Staphylococcus by PCR DETECTED (Not Detect); Streptococcus agalactiae(B)PCR Not Detected (Not Detect); Streptococcus by PCR Not Detected (Not Detect); Streptococcus pneumoniae PCR Not Detected (Not Detect); Streptococcus pyogenes (A) PCR Not Detected (Not Detect); mecA Methicillin-Resist Gene DETECTED (Not Detect)
[2018-08-11] MEDS: (Pravastatin Sodium [Pravachol] 20 MG) PO SCH (19:14)
[2018-08-11] MEDS: rOPINIRole 0.25 MG TABLET PO SCH (20:37)
[2018-08-12] MEDS: Piperacillin/Tazobactam 3.375 GM in 0.9 % Sodium Chloride Mini Bag 100 ML IVPB SCH ×2 (00:30→08:24)
[2018-08-12 06:02] LABS: Basophils # 0.1 K/mcL (0.0-0.2); Basophils % 0.8 %; Eosinophils # 1.2 K/mcL (0.0-0.6); Immature Granulocytes % 0.4 % (0-4); Lymphocytes # 1.8 K/mcL (0.6-4.6); Lymphocytes % 24.6 %; Mean Corpuscular Hemoglobin 25.9 pg (28.0-33.3); Mean Corpuscular Volume 83.6 fL (83.0-100.0); Monocytes # 0.7 K/mcL (0.0-1.3); Monocytes % 9.4 %; Neutrophils # 3.5 K/mcL (1.6-8.9); Platelet Count 355 K/mcL (140-400); Red Blood Count 3.47 M/mcL (3.82-4.97); Red Cell Distribution Width 15.4 % (11.5-14.5); Segmented Neutrophils % 48.8 %
[2018-08-12] MEDS: *HR* HYDROcodone/Acet 7.5/325 mg TABLET PO PRN (06:17)
[2018-08-12] MEDS: *HR* Heparin 5,000 UNIT/ML VIAL SQ SCH (06:18)
[2018-08-12 06:41] LABS: BUN/Creatinine Ratio 10 (6-26); Blood Urea Nitrogen 8 mg/dL (6-20); Calcium 8.6 mg/dL (8.6-10.3); Carbon Dioxide 27 mEq/L (23-29); Chloride 105 mEq/L (98-107); Glucose 92 mg/dL (70-105); Osmolality,Calculated 292 (280-300); Potassium 4.3 mEq/L (3.5-5.1); Sodium 142 mEq/L (136-145); eGFR For Non-African Americans > 60 (> 60)
[2018-08-12 06:57] VITALS: BP 107/63
[2018-08-12] MEDS: *HR* Metformin 500 MG TABLET PO SCH (08:23)
[2018-08-12] MEDS: Sulfamethoxazole/Trimeth DS 1 EACH TABLET PO SCH (08:23)
[2018-08-12] MEDS: Insulin LISPRO 300 UNITS/3 ML VIAL SQ SCH (08:23)
--- NOTE | 2018-08-12 09:08 | Discharge Summary ---
Orders not resulted at time of discharge: Pending orders 08/10/18 08:25 Culture,Wound [RM] Stat 08/10/18 08:30 Culture,Blood [BC] Stat Date of Encounter: 08/12/18 Time of Encounter: 09:15 - Discharge Diagnosis (1) Non-healing surgical wound Priority: Primary Status: Chronic Qualifiers: Encounter type: subsequent encounter Qualified Code(s): T81.89XD - Other complications of procedures, not elsewhere classified, subsequent encounter (2) Hypotension Priority: Primary Status: Resolved Qualifiers: Hypotension type: hypotension due to hypovolemia Qualified Code(s): I95.89 - Other hypotension; E86.1 - Hypovolemia (3) Acute kidney injury Priority: Primary Status: Resolved General Surgery Exam Initial Vital Signs Temp Pulse Resp BP Pulse Ox 98.0 F 103 18 94/62 94 08/10/18 08:17 08/10/18 08:17 08/10/18 08:17 08/10/18 08:17 08/10/18 08:17 - General physical appearance no distress, no pain - Respiratory normal expansion, clear to auscultation - Cardiovascular Cardiovascular exam: Present: distant heart sounds - Abdomen Abdomen general surgery: Present: bowel sounds present, soft, tender, wound (Wound VAC in place. There is no leak noted.) - Neurologic Present: normal coordination, normal sensation - Musculoskeletal Present: normal gait, normal posture - Psychiatric Psychiatric general surgery: Present: appropriate, oriented to person, oriented to place, oriented to time, speech is normal, memory intact - Hospital Course Hospital course: Ms. Pineda is a 57 year old female who presented on 08/10/2018 with symptoms of hypotension and dehydration. She was admitted for nonhealing surgical wound hypotension and dehydration. She was appropriately fluid resuscitated and her acute kidney injury immediately corrected. Her wound VAC was changed on 08/11/2018 due to a broken seal. The seal has maintained and there is no leak noted. She is ambulating and voiding without difficulty, tolerating her diet without nausea or vomiting, vital signs are stable, and she is afebrile. We will begin discharge planning to home with a follow-up with Dr. Sutton on August 22, 2018. Home health is contacted to change her wound VAC scheduled to Wednesday//Wednesday. Her next wound VAC changed will be due on 08/13/2018. We have held her home lisinopril and potassium until scene and follow-up given the acute kidney injury in the use of Bactrim antibiotic. - Time Spent with Patient Total time spent providing and/or coordinating discharge services: - Discharge Medications Prescriptions: Amoxicillin/Clavulanate [Augmentin] 875 mg PO BID 10 Days #20 tablet Sulfamethoxazole/Trimeth DS [Bactrim Ds] 1 each PO BID 10 Days #20 tablet Home Medications: Ascorbic Acid/Vitamin E/Biotin [Hair Skin Nails-Biotin Gummies] 1 tab PO QPM [History] Cyanocobalamin (Vitamin B-12) [Vitamin B-12] 1,000 mcg PO FR 07/15/18 [History] Lactobacillus Combination No.8 [Adult Probiotic] 1 cap PO QPM 07/15/18 [History] Metformin HCl [Glucophage] 500 mg PO BID 07/15/18 [History] Mv,Ca,Min/Iron/FA/Guarana/Caff [One-A-Day Women's Tablet] 1 tab PO QPM 07/15/18 [History] [place]-3/Dha/Epa/Fish Oil [Fish Oil 1,000 mg Softgel] 1 cap PO QPM 07/15/18 [History] Pravastatin Sodium [Pravachol] 20 mg PO QPM 07/15/18 [History] rOPINIRole [Requip] 0.5 mg PO HS 07/15/18 [History] Ondansetron HCl [Zofran] 4 mg PO Q6HR PRN #15 tab 07/16/18 [Rx] HYDROcodone/Acet 7.5/325 mg [[place] 7.5-325 mg] 1 tab PO Q6HR PRN 7 Days #30 tablet 07/30/18 [Rx] Docusate [Colace] 100 mg PO Q12H PRN 08/10/18 [History] Ibuprofen 800 mg PO Q8H PRN 08/10/18 [History] Amoxicillin/Clavulanate [Augmentin] 875 mg PO BID 10 Days #20 tablet 08/12/18 [Rx] Sulfamethoxazole/Trimeth DS [Bactrim Ds] 1 each PO BID 10 Days #20 tablet 08/12/18 [Rx] Allergies/Adverse Reactions: Allergy/AdvReac Type Severity Reaction Status Date / Time adhesive tape AdvReac See Verified 08/10/18 09:26 Comments simvastatin AdvReac Muscle Pain Verified 08/10/18 08:20 vancomycin AdvReac Red Man Verified 08/10/18 08:20 Syndrome Date of admission: 08/10/18 12:22 Primary care physician: Michel Wynn DO Consults: 08/10/18 10:59 Consult to Sand Caster Apprentice [CONS] Routine Reason for SW Consult: Will need home health upon discharge- already established with home wound vac therapy 08/10/18 14:39 Consult to Pastoral Services [CONS] Routine Comment: Consult to Sand Caster Apprentice [CONS] Routine Reason for SW Consult: Patient needs to update medical POA Discharging clinician: Domi Casas Anticipated date of discharge: 08/12/18 Labs on day of discharge: Labs from last 24 hours 08/12/18 08/12/18 08/12/18 06:55 05:37 05:37 WBC 7.2 RBC 3.47 L Hgb 9.0 L Hct 29.0 L MCV 83.6 MCH 25.9 L MCHC 31.0 L RDW 15.4 H Plt Count 355 MPV 9.0 L Immature Gran % 0.4 Seg Neutrophils % 48.8 Lymphocytes % 24.6 Monocytes % 9.4 Eosinophils % 16.0 Basophils % 0.8 Neutrophils # 3.5 Lymphocytes # 1.8 Monocytes # 0.7 Eosinophils # 1.2 H Basophils # 0.1 Sodium 142 Potassium 4.3 Chloride 105 Carbon Dioxide 27 BUN 8 Creatinine 0.80 Est GFR ( Amer) > 60 Est GFR (Non-Af Amer) > 60 BUN/Creatinine Ratio 10 Glucose 92 POC Glucose 101 H Calculated Osmolality 292 Calcium 8.6 A. baumannii (PCR) Tonja albicans (PCR) C. glabrata (PCR) C. krusei (PCR) C. parapsilosis (PCR) C. tropicalis (PCR) Enterobacteriac sp PCR E. cloacae complex PCR Enterococcus sp PCR E. coli (PCR) H. influenzae (PCR) Klebsiella oxytoca PCR Klebsiella pneumoniae List. monocytogenes PCR N. meningitidis (PCR) Proteus species (PCR) Serratia marcescens PCR Staphylococcus sp PCR Staph aureus (PCR) mecA-Methicil Res Gene Streptococcus sp PCR Group A Strep DNA Group B Strep (PCR) Strep pneumoniae (PCR) P. aeruginosa (PCR) Isabelle/B-Vanco Res Genes KPC (blaKPC) Detect PCR 08/11/18 08/11/18 08/11/18 20:45 16:50 07:44 WBC RBC Hgb Hct MCV MCH MCHC RDW Plt Count MPV Immature Gran % Seg Neutrophils % Lymphocytes % Monocytes % Eosinophils % Basophils % Neutrophils # Lymphocytes # Monocytes # Eosinophils # Basophils # Sodium Potassium Chloride Carbon Dioxide BUN Creatinine Est GFR ( Amer) Est GFR (Non-Af Amer) BUN/Creatinine Ratio Glucose POC Glucose 98 113 H 97 Calculated Osmolality Calcium A. baumannii (PCR) Tonja albicans (PCR) C. glabrata (PCR) C. krusei (PCR) C. parapsilosis (PCR) C. tropicalis (PCR) Enterobacteriac sp PCR E. cloacae complex PCR Enterococcus sp PCR E. coli (PCR) H. influenzae (PCR) Klebsiella oxytoca PCR Klebsiella pneumoniae List. monocytogenes PCR N. meningitidis (PCR) Proteus species (PCR) Serratia marcescens PCR Staphylococcus sp PCR Staph aureus (PCR) mecA-Methicil Res Gene Streptococcus sp PCR Group A Strep DNA Group B Strep (PCR) Strep pneumoniae (PCR) P. aeruginosa (PCR) Isabelle/B-Vanco Res Genes KPC (blaKPC) Detect PCR 08/10/18 08/10/18 18:08 08:30 WBC RBC Hgb Hct MCV MCH MCHC RDW Plt Count MPV Immature Gran % Seg Neutrophils % Lymphocytes % Monocytes % Eosinophils % Basophils % Neutrophils # Lymphocytes # Monocytes # Eosinophils # Basophils # Sodium Potassium Chloride Carbon Dioxide BUN Creatinine Est GFR ( Amer) Est GFR (Non-Af Amer) BUN/Creatinine Ratio Glucose POC Glucose 179 H Calculated Osmolality Calcium A. baumannii (PCR) Not Detected Tonja albicans (PCR) Not Detected C. glabrata (PCR) Not Detected C. krusei (PCR) Not Detected C. parapsilosis (PCR) Not Detected C. tropicalis (PCR) Not Detected Enterobacteriac sp PCR Not Detected E. cloacae complex PCR Not Detected Enterococcus sp PCR Not Detected E. coli (PCR) Not Detected H. influenzae (PCR) Not Detected Klebsiella oxytoca PCR Not Detected Klebsiella pneumoniae Not Detected List. monocytogenes PCR Not Detected N. meningitidis (PCR) Not Detected Proteus species (PCR) Not Detected Serratia marcescens PCR Not Detected Staphylococcus sp PCR DETECTED A Staph aureus (PCR) Not Detected mecA-Methicil Res Gene DETECTED A Streptococcus sp PCR Not Detected Group A Strep DNA Not Detected Group B Strep (PCR) Not Detected Strep pneumoniae (PCR) Not Detected P. aeruginosa (PCR) Not Detected Isabelle/B-Vanco Res Genes N/A KPC (blaKPC) Detect PCR N/A Preliminary micro results at discharge 08/10/18 08:30 Blood Culture - Preliminary Peripheral Venipuncture Gram Positive Cocci 08/10/18 08:51 Blood Culture - Preliminary Peripheral Venipuncture Culture is incubating and being continuously monitored for growth. Final report to follow. - Impressions ITS Impressions Chest X-Ray 08/10/18 08:26 IMPRESSION: 1. Low lung volumes. D/ / Nicolas Moss MD / Nicolas Moss MD Interpreting Provider: Nicolas Moss MD - Patient Status Disposition: Home Health Service Condition: Fair Functional capacity at discharge: independent ambulation Overall status at discharge: patient is progressing back to baseline - Discharge Instructions Follow Up With: Michel Wynn DO [Primary Care Provider] - Mathew Sutton DO [Partnered Physician] - 08/22/18 10:00 am Additional Instructions: Home Health Care for Wound Vac: Every Wednesday, , and Wednesday remove dressing and foam. Shower with antibacterial soap. Replace black foam to the midline incision. Cover with wound VAC dressing. Do not bridge shar ssing. Maintain section at - 125 mmHg. Continue antibiotics as directed Hold Lisinopril and Potassium until seen in follow-up - Diet and Activity Activity: increase activity as tolerated Diet: advance to your usual diet
--- NOTE | 2018-08-12 09:14 | Physician Discharge Referral ---
Home Health/Hosp Referral Info Transfer to: Home Health Attending Provider: Dr. Mathew Sutton Provider in Charge Post Discharge: Other (Same) - Diagnosis (1) Non-healing surgical wound Priority: Primary Status: Chronic (2) Hypotension Priority: Secondary Status: Resolved (3) Acute kidney injury Priority: Secondary Status: Resolved - Respiratory Orders Smoking Cessation: Smoking cessation has been advised. For more information, call the [employer] Tobacco Quit Line at 3-350-QJSN-NOW. - Dressing/Wound Care Type of Dressing/Treatments w/Frequency: Home Health Care for Wound Vac: Every Wednesday, , and Wednesday remove dressing and foam. Shower with antibacterial soap. Replace black foam to the midline incision. Cover with wound VAC dressing. Do not bridge dressing. Maintain section at - 125 mmHg. Continue antibiotics as directed Hold Lisinopril and Potassium until seen in follow-up - Diet/Nutrition Diet/Nutrition Orders: Regular - Activity Activity Orders: Up ad benedict - Services Needed Following services are medically necessary services: Nursing - Transfer Medications Prescriptions: Amoxicillin/Clavulanate [Augmentin] 875 mg PO BID 10 Days #20 tablet Sulfamethoxazole/Trimeth DS [Bactrim Ds] 1 each PO BID 10 Days #20 tablet Home Medications: Ascorbic Acid/Vitamin E/Biotin [Hair Skin Nails-Biotin Gummies] 1 tab PO QPM 07/15/18 [History] Cyanocobalamin (Vitamin B-12) [Vitamin B-12] 1,000 mcg PO FR 07/15/18 [History] Lactobacillus Combination No.8 [Adult Probiotic] 1 cap PO QPM 07/15/18 [History] Metformin HCl [Glucophage] 500 mg PO BID 07/15/18 [History] Mv,Ca,Min/Iron/FA/Guarana/Caff [One-A-Day Women's Tablet] 1 tab PO QPM 07/15/18 [History] [place]-3/Dha/Epa/Fish Oil [Fish Oil 1,000 mg Softgel] 1 cap PO QPM 07/15/18 [History] Pravastatin Sodium [Pravachol] 20 mg PO QPM 07/15/18 [History] rOPINIRole [Requip] 0.5 mg PO HS 07/15/18 [History] Ondansetron HCl [Zofran] 4 mg PO Q6HR PRN #15 tab 07/16/18 [Rx] HYDROcodone/Acet 7.5/325 mg [[place] 7.5-325 mg] 1 tab PO Q6HR PRN 7 Days #30 tablet 07/30/18 [Rx] Docusate [Colace] 100 mg PO Q12H PRN 08/10/18 [History] Ibuprofen 800 mg PO Q8H PRN 08/10/18 [History] Amoxicillin/Clavulanate [Augmentin] 875 mg PO BID 10 Days #20 tablet 08/12/18 [Rx] Sulfamethoxazole/Trimeth DS [Bactrim Ds] 1 each PO BID 10 Days #20 tablet 08/12/18 [Rx] Allergies/Adverse Reactions: Allergy/AdvReac Type Severity Reaction Status Date / Time adhesive tape AdvReac See Verified 08/10/18 09:26 Comments simvastatin AdvReac Muscle Pain Verified 08/10/18 08:20 vancomycin AdvReac Red Man Verified 08/10/18 08:20 Syndrome Certification: Further, I certify that my clinical findings support that this patient is homebound (i.e. absences from home require considerable and taxing effort and are for medical reasons or restorationist services or infrequently or short duration when for other reasons) because: Homebound Reason: Patient requires assistance of a person or device to safely leave home, Post-surgery restriction and or conditions limit ability to leave home, Leaving home requires considerable and taxing effort due to condition Attestation: My signature below is to certify that this patient is under my care and that I, or nurse practitioner, or a physician's civil engineering assistant working with me, has a [id number] encounter with this patient.
== END 2018-08-12 11:10 | disposition home health service (06) | DRG 919 ==
LOC: EMEROOARM 08:13 → 3ANU 12:22
PROVIDERS: ADMIT Surgery; ATTEND Surgery

== ENCOUNTER 2020-08-10 19:38 | Inpatient (IN) ==
[2020-08-10] MEDS ORDERED: 0.9 % Sodium Chloride 1,000 ML IVC ONE (19:55)
[2020-08-10] MEDS ORDERED: Ondansetron 4 MG/2 ML VIAL IVP ONE (20:09)
[2020-08-10] MEDS ORDERED: Morphine Sulfate 2 MG/ML SYRINGE IVP ONE ×2 (20:09→21:43)
[2020-08-10] MEDS ORDERED: Isovue-370 500 ML BOTTLE IVP ONE (20:10)
[2020-08-10 20:20] LABS: Basophils # 0.1 K/mcL (0.0-0.2); Basophils % 0.4 %; Eosinophils # 0.1 K/mcL (0.0-0.6); Eosinophils % 0.6 %; Hematocrit 45.4 % (35.3-44.9); Hemoglobin 14.8 g/dL (11.5-15.4); Immature Granulocytes % 0.4 % (0-4); Lymphocytes # 1.6 K/mcL (0.6-4.6); Lymphocytes % 10.9 %; Mean Corpuscular HGB Conc 32.6 g/dL (31.6-35.5); Mean Corpuscular Hemoglobin 29.3 pg (28.0-33.3); Mean Corpuscular Volume 89.9 fL (83.0-100.0); Mean Platelet Volume 8.6 fL (9.4-12.4); Monocytes # 0.9 K/mcL (0.0-1.3); Monocytes % 6.4 %; Neutrophils # 11.5 K/mcL (1.6-8.9); Platelet Count 292 K/mcL (140-400); Red Blood Count 5.05 M/mcL (3.82-4.97); Red Cell Distribution Width 12.5 % (11.5-14.5); Segmented Neutrophils % 81.3 %; White Blood Count 14.2 K/mcL (4.3-11.1)
[2020-08-10 20:39] LABS: Alanine Aminotransferase 22 Units/L (7-52); Albumin 4.2 g/dL (3.5-5.7); Albumin/Globulin Ratio 1.2 (1.1-2.2); Alkaline Phosphatase 84 Units/L (34-104); Aspartate Amino Transferase 24 Units/L (13-39); BUN/Creatinine Ratio 9 (6-26); Bilirubin,Direct 0.1 mg/dL (0.0-0.2); Bilirubin,Indirect 0.3 mg/dL (0.0-1.0); Bilirubin,Total 0.4 mg/dL (0.3-1.0); Blood Urea Nitrogen 8 mg/dL (8-23); Calcium 9.1 mg/dL (8.6-10.3); Carbon Dioxide 28 mEq/L (23-29); Chloride 99 mEq/L (98-107); Globulin 3.6 g/dL (2.4-3.5); Glucose 171 mg/dL (70-105); Lipase 11 Units/L (11-82); Osmolality,Calculated 290 (280-300); Potassium 3.7 mEq/L (3.5-5.1); Sodium 139 mEq/L (136-145); Total Protein 7.8 g/dL (6.4-8.9); eGFR For African Americans > 60 (> 60); eGFR For Non-African Americans > 60 (> 60)
[2020-08-10 22:24] LABS: Bilirubin,Urine Negative (Negative); Blood,Urine Large (Negative); Clarity,Urine Clear (Clear); Color,Urine Light-Yellow (Yellow); Glucose,Urine (UA) Normal (Normal); Ketones,Urine Negative (Negative); Leukocyte Esterase,Urine Negative (Negative); Mucus,Urine Few per lpf (None-Few); Nitrite,Urine Negative (Negative); Protein,Urine Trace mg/dL (Neg-Trace); RBC,Urine TNTC per hpf (0-3); Specific Gravity,Urine > 1.030 (1.010-1.025); Squamous Epithelial Cell,Urine Few per hpf (None-Few); Transitional Epi Cells,Urine Few per hpf (None-Few); Urobilinogen,Urine Normal (Normal)
[2020-08-10] MEDS ORDERED: *HR* HYDROmorphone (PF) 1 MG/ML SYRINGE IVP ONE (23:02)
[2020-08-11] MEDS ORDERED: Ketorolac 15 MG/ML VIAL IVP ONE (01:34)
[2020-08-11] MEDS ORDERED: Naloxone 0.4 MG/ML INJ IVP PRN (03:03)
[2020-08-11] MEDS ORDERED: Ondansetron ODT 4 MG TAB.RAPDIS SL PRN (03:03)
[2020-08-11] MEDS ORDERED: Dextrose Gel 15 GM/37.5 ML TUBE PO PRN ×2 (03:07)
[2020-08-11] MEDS ORDERED: D5% in Water 1,000 ML IVC PRN (03:07)
[2020-08-11] MEDS ORDERED: *HR* Dextrose 50 % in Water (Vial) 50 ML VIAL IVP PRN (03:07)
[2020-08-11] MEDS ORDERED: Fluticasone Propionate Nasal 50 MCG/SPRAY BOTTLE NS PRN (03:09)
[2020-08-11] MEDS ORDERED: 0.9 % Sodium Chloride 1,000 ML IVC SCH (03:15)
[2020-08-11] MEDS: Acetaminophen 325 MG TABLET PO PRN ×2 (04:28→15:04)
[2020-08-11 05:29] LABS: Adenovirus Not Detected (Not Detect); Bordetella Pertussis Not Detected (Not Detect); Chlamydophila pneumoniae Not Detected (Not Detect); Coronavirus 229E Not Detected (Not Detect); Coronavirus HKU1 Not Detected (Not Detect); Coronavirus NL63 Not Detected (Not Detect); Coronavirus OC43 Not Detected (Not Detect); Human Metapneumovirus Not Detected (Not Detect); Human Rhinovirus/Enterovirus Not Detected (Not Detect); Influenza A Subtype 2009 H1 Not Detected (Not Detect); Influenza B Not Detected (Not Detect); Mycoplasma pneumoniae Not Detected (Not Detect); Parainfluenza Virus 1 Not Detected (Not Detect); Parainfluenza Virus 2 Not Detected (Not Detect); Parainfluenza Virus 3 Not Detected (Not Detect); Parainfluenza Virus 4 Not Detected (Not Detect); Respiratory Syncytial Virus Not Detected (Not Detect); SARS-CoV-2 Not Detected (Not Detect)
[2020-08-11] MEDS: *HR* HYDROmorphone (PF) 1 MG/ML SYRINGE IVP PRN ×2 (06:58→21:41)
[2020-08-11 07:22] LABS: Basophils % 0.4 %; Eosinophils # 0.2 K/mcL (0.0-0.6); Eosinophils % 1.8 %; Hematocrit 38.3 % (35.3-44.9); Hemoglobin 12.2 g/dL (11.5-15.4); Immature Granulocytes % 0.4 % (0-4); Lymphocytes # 2.2 K/mcL (0.6-4.6); Lymphocytes % 20.8 %; Mean Corpuscular HGB Conc 31.9 g/dL (31.6-35.5); Mean Corpuscular Hemoglobin 29.6 pg (28.0-33.3); Mean Platelet Volume 8.4 fL (9.4-12.4); Monocytes # 0.9 K/mcL (0.0-1.3); Monocytes % 8.7 %; Platelet Count 251 K/mcL (140-400); Red Blood Count 4.12 M/mcL (3.82-4.97); Red Cell Distribution Width 12.6 % (11.5-14.5); Segmented Neutrophils % 67.9 %; White Blood Count 10.4 K/mcL (4.3-11.1)
[2020-08-11 07:23] LABS: Estimated Average Glucose 128 mg/dl
[2020-08-11 07:27] LABS: INR 1.1; Prothrombin Time 12.8 Seconds (9.4-12.1)
[2020-08-11 07:41] LABS: BUN/Creatinine Ratio 9 (6-26); Blood Urea Nitrogen 10 mg/dL (8-23); Carbon Dioxide 33 mEq/L (23-29); Chloride 103 mEq/L (98-107); Glucose 117 mg/dL (70-105); Magnesium 1.8 mg/dL (1.6-2.6); Osmolality,Calculated 292 (280-300); Potassium 3.7 mEq/L (3.5-5.1); Sodium 141 mEq/L (136-145); eGFR For African Americans > 60 (> 60); eGFR For Non-African Americans 50 (> 60)
[2020-08-11] MEDS: Insulin LISPRO 300 UNITS/3 ML VIAL SQ SCH ×3 (08:10→16:21)
[2020-08-11] MEDS: cefTRIAXone 1,000 MG in 0.9 % Sodium Chloride Mini Bag 100 ML IVPB SCH (08:46)
[2020-08-11] MEDS: lisinopriL 5 MG TABLET PO SCH (13:08)
[2020-08-11] MEDS: 0.9 % Sodium Chloride 1,000 ML IVC SCH (13:08)
[2020-08-11] MEDS: Lactobacillus 1 EACH CAP.SPRINK PO SCH (17:59)
[2020-08-11] MEDS: Multivit/Ca/Min/Fe/FA 1 TAB TABLET PO SCH (17:59)
[2020-08-11] MEDS ORDERED: NON-FORMULARY MEDICATION 1 EACH EACH (Omega-3/Dha/Epa/Fish Oil [Fish Oil 1,000 Mg Softgel] PO SCH (18:00)
[2020-08-11] MEDS ORDERED: rOPINIRole 0.25 MG TABLET PO SCH (21:00)
[2020-08-12] MEDS: 0.9 % Sodium Chloride 1,000 ML IVC SCH (02:10)
[2020-08-12] MEDS: Acetaminophen 325 MG TABLET PO PRN (02:12)
[2020-08-12 05:23] LABS: Calcium 7.9 mg/dL (8.6-10.3); Potassium 4.4 mEq/L (3.5-5.1)
[2020-08-12] MEDS: lisinopriL 5 MG TABLET PO SCH (08:59)
[2020-08-12] MEDS ORDERED: Loratadine 10 MG TABLET PO SCH (09:00)
[2020-08-12] MEDS ORDERED: Vitamin B Complex/Vit C/Vit E 1 EACH TABLET PO SCH (09:00)
[2020-08-12] MEDS: cefTRIAXone 1,000 MG in 0.9 % Sodium Chloride Mini Bag 100 ML IVPB SCH (09:02)
[2020-08-12] MEDS: *HR* HYDROmorphone (PF) 1 MG/ML SYRINGE IVP PRN (09:09)
[2020-08-12] MEDS: Insulin LISPRO 300 UNITS/3 ML VIAL SQ SCH ×3 (09:18→18:30)
[2020-08-12] MEDS ORDERED: Famotidine 20 MG/2 ML VIAL ONE (15:38)
[2020-08-12] MEDS ORDERED: Acetaminophen IV 1,000 MG/100 ML INFUS..BTL ONE (15:39)
[2020-08-12] MEDS ORDERED: Ondansetron 4 MG/2 ML VIAL ONE ×2 (15:39→15:54)
[2020-08-12] MEDS ORDERED: *HR* Propofol 200 MG/20 ML VIAL IVP ONE (15:54)
[2020-08-12] MEDS ORDERED: Dexamethasone 4 MG/ML VIAL ONE (15:54)
[2020-08-12] MEDS ORDERED: Lidocaine -MPF 2% 2 ML VIAL ONE (15:54)
[2020-08-12] MEDS ORDERED: *HR* FentaNYL (PF) 100 MCG/2 ML VIAL ONE (15:54)
[2020-08-12] MEDS ORDERED: Lidocaine -MPF 4% 5 ML AMPUL ONE (15:54)
[2020-08-12] MEDS ORDERED: *HR* Succinylcholine 200 MG/10 ML VIAL IVP ONE (15:54)
[2020-08-12] MEDS ORDERED: Isovue-300 50ML VIAL ONE (16:17)
[2020-08-12] MEDS ORDERED: *HR* PHENYLEPHRINE 1,000 MCG/10 ML SYRINGE IVP ONE ×2 (16:29→16:47)
[2020-08-12] MEDS ORDERED: D5% in Water 1,000 ML IVC PRN (18:15)
[2020-08-12] MEDS ORDERED: *HR* Dextrose 50 % in Water (Vial) 50 ML VIAL IVP PRN (18:15)
[2020-08-12] MEDS ORDERED: Dextrose Gel 15 GM/37.5 ML TUBE PO PRN ×2 (18:15)
[2020-08-12] MEDS ORDERED: Naloxone 0.4 MG/ML INJ IVP PRN (18:15)
[2020-08-12] MEDS ORDERED: Ondansetron ODT 4 MG TAB.RAPDIS SL PRN (18:15)
[2020-08-12] MEDS ORDERED: *HR* HYDROmorphone (PF) 1 MG/ML SYRINGE IVP PRN (18:15)
[2020-08-12] MEDS ORDERED: Acetaminophen 325 MG TABLET PO PRN (18:15)
[2020-08-12] MEDS ORDERED: Fluticasone Propionate Nasal 50 MCG/SPRAY BOTTLE NS PRN (18:15)
[2020-08-12] MEDS: Multivit/Ca/Min/Fe/FA 1 TAB TABLET PO SCH (18:30)
[2020-08-12] MEDS: Lactobacillus 1 EACH CAP.SPRINK PO SCH (18:30)
[2020-08-12] MEDS ORDERED: rOPINIRole 0.25 MG TABLET PO SCH (21:00)
[2020-08-13 02:22] LABS: Hematocrit 38.3 % (35.3-44.9); Hemoglobin 12.2 g/dL (11.5-15.4); Mean Corpuscular HGB Conc 31.9 g/dL (31.6-35.5); Mean Corpuscular Hemoglobin 29.5 pg (28.0-33.3); Mean Corpuscular Volume 92.5 fL (83.0-100.0); Mean Platelet Volume 8.7 fL (9.4-12.4); Platelet Count 232 K/mcL (140-400); Red Blood Count 4.14 M/mcL (3.82-4.97); Red Cell Distribution Width 12.3 % (11.5-14.5)
[2020-08-13 02:43] LABS: BUN/Creatinine Ratio 11 (6-26); Blood Urea Nitrogen 9 mg/dL (8-23); Calcium 8.3 mg/dL (8.6-10.3); Carbon Dioxide 28 mEq/L (23-29); Chloride 103 mEq/L (98-107); Glucose 152 mg/dL (70-105); Osmolality,Calculated 290 (280-300); Potassium 4.3 mEq/L (3.5-5.1); Sodium 139 mEq/L (136-145); eGFR For African Americans > 60 (> 60); eGFR For Non-African Americans > 60 (> 60)
[2020-08-13 06:29] VITALS: BP 120/75
[2020-08-13] MEDS ORDERED: Insulin LISPRO 300 UNITS/3 ML VIAL SQ SCH (07:30)
[2020-08-13] MEDS ORDERED: cefTRIAXone 1,000 MG in 0.9 % Sodium Chloride Mini Bag 100 ML IVPB SCH (09:00)
[2020-08-13] MEDS ORDERED: Vitamin B Complex/Vit C/Vit E 1 EACH TABLET PO SCH (09:00)
[2020-08-13] MEDS ORDERED: Loratadine 10 MG TABLET PO SCH (09:00)
[2020-08-13] MEDS ORDERED: lisinopriL 5 MG TABLET PO SCH (09:00)
[2020-08-13] MEDS ORDERED: Lactobacillus 1 EACH CAP.SPRINK PO SCH (18:00)
[2020-08-13] MEDS ORDERED: Multivit/Ca/Min/Fe/FA 1 TAB TABLET PO SCH (18:00)
[2020-08-16] MEDS ORDERED: Cyanocobalamin (B-12) 1,000 MCG TABLET PO SCH ×2 (12:11)
== END 2020-08-13 11:30 | disposition home or self-care (01) | DRG 854 ==
LOC: 3NENU 19:38 → EMEROOARM 19:38 → SUATTDRO 08-11 02:27 → 3NENU 08-11 02:53
PROVIDERS: ADMIT Internal Medicine; ATTEND Family Medicine